=== PATIENT | female | born 1930 | race Caucasian/White ===

== ENCOUNTER → 2016-12-07 | Outpatient (CLI) | payer OTHER ==
--- NOTE | 2016-12-07 18:21 | DX ---
PA and lateral chest History: Cough with right lower lobe rhonchi. Comparison: CT chest March 23, 2016, PA and lateral chest March 23, 2016 and March 21, 2016. Findings: There is mild peribronchial thickening without focal consolidation. There is no pneumothora x or pleural effusion. Prominent right epicardial fat pad is noted. Mild cardiomegaly is stable. Mild degenerative change is present in the spine. Lumbar fusion hardware is incompletely visualized. Athe rosclerotic calcification is noted in the abdominal aorta. Impression: 1. Mild peribronchial thickening suggesting airways disease/bronchitis. 2. Stable mild cardiomegaly.
== END ==
LOC: BMCIMAGING 14:52
PROVIDERS: ATTEND Internal Medicine
DX: R05 Cough (principal); R09.89 Other specified symptoms and signs involving the circulatory and respiratory systems

== ENCOUNTER 2017-01-27 10:46 | Emergency (ER) | payer OTHER ==
[2017-01-27 10:55] VITALS: RESP 18
--- NOTE | 2017-01-27 11:27 | CPEKG ---
Heart Rate: 55 RR Interval: 1091 P-R Interval: 156 QRSD Interval: 90 QT Interval: 432 QTC Interval: 414 P [place]: 70 QRS [place]: 9 T Wave [place]: 58 EKG Severity - NORMAL ECG - EKG Impression: SINUS RHYTHM Electronically Signed By: Domingo Ocasio 29-Jan-2017 14:45:18
[2017-01-27 11:43] LABS: ADD DIFF? YES; ADD MORPH? NO; ADD SCAN? YES; FRAGMENT RBC FLAG 20 (0-99); HEMOGLOBIN 13.8 g/dL (12.6-16.3); LEFT SHIFT FLG 10 (0-99); LIPEMIA HEMOLYSIS FLAG 80 (0-99); MEAN CELL HEMOGLOBIN 28.8 pg (27.9-34.1); MEAN CELL HEMOGLOBIN CONCENTR. 31.4 g/dL (32.4-36.7); MEAN CELL VOLUME 91.9 fL (81.5-99.8); PLATELET CLUMPS FLAG 0 (0-99); PLATELET COUNT 82 10^3/uL (150-400); RED BLOOD CELL COUNT 4.79 10^6/uL (4.18-5.33)
[2017-01-27 11:45] LABS: ATYPICAL LYMPHOCYTE FLAG 140 (0-99)
[2017-01-27 12:07] LABS: ANION GAP 13 mEq/L (8-16); CALCIUM 8.7 mg/dL (8.5-10.4); CARBON DIOXIDE 23 mEq/l (22-31); CHLORIDE 103 mEq/L (97-110); GLOMERULAR FILTRATION RATE 52; GLUCOSE 98 mg/dL (70-100); POTASSIUM 4.1 mEq/L (3.5-5.2); SODIUM 139 mEq/L (134-144)
[2017-01-27 12:20] LABS: GIANT PLATELETS PRESENT; LARGE PLATELETS PRESENT; PLATELET ESTIMATE DECREASED (ADEQ)
[2017-01-27 12:22] LABS: SCAN POSITIVE
--- NOTE | 2017-01-27 12:33 | EDPHY ---
H & P Stated Complaint: Weakness, fever, cough Time Seen by Provider: 01/27/17 11:06 HPI/ROS: CHIEF COMPLAINT: weakness, fever, cough HISTORY OF PRESENT ILLNESS: 86-year-old female presents emergency department complaining of weakness and fever x3 days. Patient was treated for a pneumonia with a course of Zithromax and Levaquin 1.5 months ago and stopped a 2 week prednisone taper on 3 days ago, her symptoms from this completely resolved, Wednesday she developed a dry cough, body aches and fever to 101 and spent 3 days in bed. Patient is independent living, her friend brought her to the emergency department today. Patient uses oxygen at night. She denies chest pain, denies shortness of breath. She denies abdominal pain. Patient reports she had diarrhea the month of November though this has resolved aside from 1 episode of diarrhea yesterday with no blood. Decreased appetite. She reports feeling a pressure in her ears, mild nasal congestion, no sore throat. REVIEW OF SYSTEMS: A comprehensive 10 point review of systems is otherwise negative aside from elements mentioned in the history of present illness. Source: Patient Exam Limitations: No limitations - Personal History Current Tetanus/Diphtheria Vaccine: No Tetanus Vaccine Date: about 10 years ago - Medical/Surgical History Hx Asthma: No Hx Chronic Respiratory Disease: No Hx Diabetes: No Hx Cardiac Disease: No Hx Renal Disease: No Hx Cirrhosis: No Hx Alcoholism: No Hx HIV/AIDS: No Hx Splenectomy or Spleen Trauma: No Other PMH: pmh- HTN, PNA x2, [place] - Social History Smoking Status: Former smoker - Physical Exam Exam: Physical Exam Gen: Alert and Oriented, NAD HEENT: PERRL, moist mucous membranes NECK: no meningismus CV: regular rate and regular rhythm, 3 6 systolic murmur PULM: CTAB, no wheezes ABDOMEN: soft, non tender to palpation, BS present BACK: No CVA tenderness NEURO: Neurologically grossly intact EXTREMITIES: normal appearing SKIN: no rash or break in skin on exposed skin PSYCH: answers questions appropriately. Constitutional: Initial Vital Signs Temperature (C) 36.5 C 01/27/17 10:52 Heart Rate 58 L 01/27/17 10:52 Respiratory Rate 18 01/27/17 10:52 Blood Pressure 120/78 01/27/17 10:52 O2 Sat (%) 91 L 01/27/17 10:52 O2 Delivery Mode Room Air Allergies/Adverse Reactions: No Known Allergies Allergy (Verified 09/23/16 21:13) Home Medications: Medication Instructions Recorded AMLODIPINE BESYLATE 2.5 mg PO HS 01/27/17 Albuterol [Proventil Inhaler HFA 1 - 2 puffs IH Q4H #1 mdi 01/27/17 (*)] Furosemide [Lasix 20 MG (*)] 20 mg PO DAILY 01/27/17 Hydroxyurea [Hydrea 500 mg (*)] 500 mg PO DAILY 01/27/17 Lisinopril 5 mg PO HS 01/27/17 clonAZEPAM [Clonazepam] 1 mg PO HS 01/27/17 Medical Decision Making - Diagnostics EKG Interpretation: EKG shows normal sinus rhythm, rate 55, normal axis, good R-wave progression, no ST or T-wave abnormalities. Imaging: Chest x-ray independently reviewed by me- Impression: 1. Lingular diskoid subsegmental atelectasis. 2. Mild cardiomegaly, without congestive heart failure. Dictated By: Vj Wylie MD ED Course/Re-evaluation: IV established, CBC, chemistry panel, urinalysis, influenza and chest x-ray ordered. Patient is given 500 ml of normal saline. She is afebrile, nontoxic-appearing though room air oxygen saturations dipped down to 84%. Chest x-ray shows no evidence of pneumonia. CBC shows no elevated white blood cell low at 84, chemistry panel is normal, urinalysis shows no evidence of infection, influenza is negative. Recommended hospitalization to the patient for continued workup for oxygen saturations that are 84%, pt is reluctant but agrees to stay. Pt admitted to Dr. Brewer. 4pm- Pt seen by Dr. Brewer in the ED. She now is refusing to be admitted. Dr. Brewer is discharging her home from the ED. - Data Points Laboratory Results: Laboratory Results 01/27/17 11:30 01/27/17 11:30 01/27/17 01/27/17 01/27/17 13:28 13:15 11:30 WBC RBC Hgb Hct MCV MCH MCHC RDW Plt Count MPV Neut % (Auto) Lymph % (Auto) M[place]ick % (Auto) Eos % (Auto) Baso % (Auto) Nucleat RBC Rel Count Absolute Neuts (auto) Absolute Lymphs (auto) Absolute Monos (auto) Absolute Eos (auto) Absolute Basos (auto) Absolute Nucleated RBC Immature Gran % Seg Neutrophils % Band Neutrophils % Lymphocytes % Monocytes % Immature Gran # Absolute Seg Neuts Absolute Band Neuts Absolute Lymphocytes Absolute Monocytes RBC/WBC/PLT Morphology Atypical Lymphocytes Platelet Estimate Large Platelets Giant Platelets Smear Review By Sodium 139 mEq/L mEq/L (134-144) Potassium 4.1 mEq/L mEq/L (3.5-5.2) Chloride 103 mEq/L mEq/L (97-110) Carbon Dioxide 23 mEq/l mEq/l (22-31) Anion Gap 13 mEq/L mEq/L (8-16) BUN 27 mg/dL H mg/dL (7-23) Creatinine 1.0 mg/dL mg/dL (0.6-1.0) Estimated GFR 52 Glucose 98 mg/dL mg/dL (70-100) Calcium 8.7 mg/dL mg/dL (8.5-10.4) Urine Color YELLOW Urine Appearance HAZY Urine pH 5.0 (5.0-7.5) Ur Specific [place] 1.020 (1.002-1.030) Urine Protein NEGATIVE (NEGATIVE) Urine Ketones NEGATIVE (NEGATIVE) Urine Blood NEGATIVE (NEGATIVE) Urine Nitrate NEGATIVE (NEGATIVE) Urine Bilirubin NEGATIVE (NEGATIVE) Urine Urobilinogen NEGATIVE EU EU (0.2-1.0) Ur Leukocyte Esterase NEGATIVE (NEGATIVE) Ur Culture Indicated? NOT INDICATED (NI) Urine Glucose NEGATIVE (NEGATIVE) Influenza Typ A,B (DFA) NEGATIVE FOR FLU (NEGATIVE) 01/27/17 11:30 WBC 4.79 10^3/uL 10^3/uL (3.80-9.50) RBC 4.79 10^6/uL 10^6/uL (4.18-5.33) Hgb 13.8 g/dL g/dL (12.6-16.3) Hct 44.0 % % (38.0-47.0) MCV 91.9 fL fL (81.5-99.8) MCH 28.8 pg pg (27.9-34.1) MCHC 31.4 g/dL L g/dL (32.4-36.7) RDW 18.0 % H % (11.5-15.2) Plt Count 82 10^3/uL L 10^3/uL (150-400) MPV TNP Neut % (Auto) Not Reported Lymph % (Auto) Not Reported [place] % (Auto) Not Reported Eos % (Auto) Not Reported Baso % (Auto) Not Reported Nucleat RBC Rel Count 0.0 % % (0.0-0.2) Absolute Neuts (auto) Not Reported Absolute Lymphs (auto) Not Reported Absolute Monos (auto) Not Reported Absolute Eos (auto) Not Reported Absolute Basos (auto) Not Reported Absolute Nucleated RBC 0.00 10^3/uL 10^3/uL (0-0.01) Immature Gran % Not Reported Seg Neutrophils % 23 % % Band Neutrophils % 10 % % Lymphocytes % 34 % % Monocytes % 33 % % Immature Gran # Not Reported Absolute Seg Neuts 1.10 10^/uL L 10^/uL (1.70-6.50) Absolute Band Neuts 0.48 10^3/uL 10^3/uL (0.00-0.70) Absolute Lymphocytes 1.63 10^3/uL 10^3/uL (1.00-3.00) Absolute Monocytes 1.58 10^3/uL H 10^3/uL (0.30-0.80) RBC/WBC/PLT Morphology NORMAL (NORMAL) Atypical Lymphocytes 1+ H Platelet Estimate DECREASED L (ADEQ) Large Platelets PRESENT H Giant Platelets PRESENT H Smear Review By Pending Sodium Potassium Chloride Carbon Dioxide Anion Gap BUN Creatinine Estimated GFR Glucose Calcium Urine Color Urine Appearance Urine pH Ur Specific [place] Urine Protein Urine Ketones Urine Blood Urine Nitrate Urine Bilirubin Urine Urobilinogen Ur Leukocyte Esterase Ur Culture Indicated? Urine Glucose Influenza Typ A,B (DFA) Medications Given: Discontinued Medications Sodium Chloride (Ns) 500 mls @ 0 mls/hr IV ONCE ONE PRN Reason: Wide Open Stop: 01/27/17 12:44 Last Admin: 01/27/17 13:33 Dose: 500 mls Departure - Departure Disposition: [facility] Acute Clinical Impression: Hypoxia Condition: Fair
[2017-01-27] MEDS ORDERED: NS 500 ML IV ONE (12:43)
[2017-01-27 13:38] LABS: COLOR YELLOW; LEUKOCYTE ESTERASE,URINE NEGATIVE (NEGATIVE); NITRITE,URINE NEGATIVE (NEGATIVE)
[2017-01-27] MEDS ORDERED: ONDANSETRON DISINTEGRATING 4 MG TAB PO PRN (16:02)
[2017-01-27] MEDS ORDERED: ACETAMINOPHEN 325 MG TAB PO PRN (16:02)
[2017-01-27] MEDS ORDERED: ONDANSETRON 4 MG/2 ML VIAL IVP PRN (16:02)
[2017-01-27 16:34] VITALS: BP 142/66; PULSE 52; TEMP 97.5; O2SAT 90
--- NOTE | 2017-01-27 16:59 | GHP ---
DATE OF ADMISSION: 01/27/2017 CHIEF COMPLAINT: Hypoxia. Patient is a pleasant 86-year-old female with history of chronic back pain and chronic hypoxemic res piratory failure (2 L oxygen at night), presenting with weakness and fever for 3 days. The patient was recently treated for pneumonia in November with a course of Zithromax and Levaquin. She just com pleted a 4 week prednisone taper on Wednesday. At that time, her symptoms were completely resolved. H owever, later that day she developed a dry cough, body aches and fever to 100. She said she was in bed for 2 days. She denies nausea, vomiting. Has reported loose stools, orange in color. No blood . She had a normal stool today. She did feel wobbly, although she used a cane today. Denies heada ches. No chest pain. No shortness of breath. Denies dizziness. REVIEW OF SYSTEMS: I completed a 10-point review of system. PAST MEDICAL HISTORY: Insomnia, chronic back pain, history of a bladder tumor. PAST SURGICAL HISTORY: L3-L4 fusion, ROSETTE, bilateral laminectomy, bladder tumor removal, right CEA. SOCIAL HISTORY: Lives in [facility]. Smoked remotely for 10 years. She uses medical [employer] for sleep. No alcohol. Uses a cane occasionally. FAMILY HISTORY: Mother with colon cancer. Father with LA at age 87. Paternal grandfather with an LA. MEDICATIONS: See medication reconciliation. ALLERGIES: No known drug allergies. PHYSICAL EXAM: VITAL SIGNS: Temperature 36.5, blood pressure 120/78, respirations 18, heart rate 5 0s, 84% on room air, 96 on 2 L. GENERAL: Patient is sitting up in chair in no acute distress. MINH NT: PERRLA. EOMI. Dry mucous membranes. No sinus tenderness to palpation. CV: Enrique, regular. No murmurs, gallops, or rubs. LUNGS: Clear. Mildly diminished at bases. No wheezes. ABDOMEN: Soft, nontender, nondistended. : No [place]. No suprapubic tenderness. MUSCULOSKELETAL: 5/5 upp er and lower extremity strength. NEURO: 2 through 12 intact. PSYCH: Alert and oriented x3. UA is negative. Influenza negative. Sodium 139, potassium is 4.1, chloride 103, carbon dioxide 23, creatinine 1, BUN 27. WBC is 4.7, hemoglobin 13, hematocrit 44, platelets 82 (baseline is platelet s 96 to normal). EKG personally reviewed by me. Bradycardic. No ST elevation. Chest x-ray personally reviewed by me. No overt opacity. May be some peribronchial thickening. ASSESSMENT AND PLAN: 1. Acute hypoxia: Suspect this is residual from recent pneumonia. May be having an element of pos tinfectious reactive airway disease. There does not appear to be a new pneumonia on x-ray. Influen za is negative. I will not prescribe antibiotics at this time. We will provide albuterol inhaler a nd she has antitussives at home. Patient has oxygen at home. I advised that she uses this during until she follows up with her PCP. 2. Weakness: Again this could be a residual of recent infection. Patient is afebrile here. Sarah l white count. UA was negative. She did report loose stools and has been on antibiotics recently. She did have a normal stool today. Patient denies falls. No dizziness or lightheadedness. She villagomez s a cane and uses caution. 3. Thrombocytopenia: Platelets were 82. She has had lows in the past and most recently in June. Query if this is due to viral process. She had no active bleeding. DISPOSITION: Plan was to admit patient for observation and PT evaluation. The patient declines adm ission. Feels like she can go home and feels safe. MEDICATIONS: New medication albuterol. FOLLOWUP: Patient should follow up with Dr. Alex for repeat O2 saturation next week. /[id number]/MODL
--- NOTE | 2017-01-27 17:32 | GDS ---
DISCHARGE DIAGNOSES: 1. Hypertension. 2. Acute on chronic hypoxemic respiratory failure. 3. Insomnia. 4. Chronic back pain. 5. History of bladder tumor. 6. Weakness. HISTORY OF PRESENT ILLNESS: The patient is an 86-year-old female with a history of hypertension, re cently treated for pneumonia with both a Z-Alex and Levaquin as well as a 4-week prednisone taper. S he presented today due to increased weakness and fever at home. Upon evaluation in the emergency ro om, the patient is afebrile without a white count. Influenza and chest x-ray are negative for a new infection. Plan was to admit patient for PT evaluation. Patient declined admission. I discharged her home wit h albuterol and advised to use oxygen / until she can follow up with her PCP, Dr. Alex. /[id number]/MODL
[2017-01-27] MEDS ORDERED: amLODIPine BESYLATE 5 MG TAB PO SCH (21:00)
[2017-01-27] MEDS ORDERED: CLONAZEPAM 1 MG PO SCH (21:00)
[2017-01-27] MEDS ORDERED: LISINOPRIL 10 MG TAB PO SCH (21:00)
[2017-01-28] MEDS ORDERED: HYDROXYUREA 500 MG CAP PO SCH (09:00)
[2017-01-28] MEDS ORDERED: FUROSEMIDE 20 MG TAB PO SCH (09:00)
== END 2017-01-27 16:37 | disposition home or self-care (01) ==
LOC: UNDOADMIN 14:41
DX: R09.02 Hypoxemia (principal); R50.9 Fever, unspecified

== ENCOUNTER 2017-02-04 10:39 | Emergency (ER) | payer OTHER ==
[2017-02-04] MEDS ORDERED: NS 1,000 ML IV ONE (11:04)
--- NOTE | 2017-02-04 11:04 | EDPHY ---
H & P Stated Complaint: Sent by PCP. Diarrhea x 1 month. anerexia. Time Seen by Provider: 02/04/17 11:03 HPI/ROS: CHIEF COMPLAINT: Abdominal pain, early satiety HISTORY OF PRESENT ILLNESS: The patient presents to the ED for evaluation of several weeks of progressively worsening lower abdominal pain in early satiety. The patient did have a history of having diarrhea which seem to last approximately 3 weeks which recently resolved. The patient was seen in the ED approximately a week ago for dyspnea and discharged home. The patient saw her primary care provider yesterday who reportedly told the patient to come to the hospital for further evaluation. The patient denies any dysuria. She has no complaints of vomiting. She denies fever. The patient does have a history of chronic lower extremity pain from sciatica. REVIEW OF SYSTEMS: A comprehensive 10 point review of systems is otherwise negative aside from elements mentioned in the history of present illness. Source: Patient Exam Limitations: No limitations - Personal History Current Tetanus/Diphtheria Vaccine: Yes Current Tetanus Diphtheria and Acellular Pertussis (TDAP): Yes Tetanus Vaccine Date: about 10 years ago - Medical/Surgical History Hx Asthma: No Hx Chronic Respiratory Disease: No Hx Diabetes: No Hx Cardiac Disease: No Hx Renal Disease: No Hx Cirrhosis: No Hx Alcoholism: No Hx HIV/AIDS: No Hx Splenectomy or Spleen Trauma: No Other PMH: pmh- HTN, PNA x2, [place] - Social History Smoking Status: Former smoker - Physical Exam Exam: General Appearance: Elderly female, kyphosis, no acute distress Eyes: Pupils equal and round no pallor or injection ENT, Mouth: Mucous membranes moist Respiratory: There are no retractions, lungs are clear to auscultation Cardiovascular: Regular rate and rhythm Gastrointestinal: Tenderness to palpation noted in the left lower quadrant, no peritoneal signs Neurological: A&O, normal motor function, normal sensory exam, normal cranial nerves Skin: Warm and dry, no rashes Musculoskeletal: Neck is supple nontender Extremities: symmetrical, full range of motion Constitutional: Initial Vital Signs Heart Rate 61 02/04/17 10:45 Respiratory Rate 17 02/04/17 10:45 Blood Pressure 124/60 H 02/04/17 10:45 O2 Sat (%) 93 02/04/17 10:45 O2 Delivery Mode Room Air Allergies/Adverse Reactions: No Known Allergies Allergy (Verified 09/23/16 21:13) Home Medications: Medication Instructions Recorded AMLODIPINE BESYLATE 2.5 mg PO HS 01/27/17 Albuterol [Proventil Inhaler HFA 1 - 2 puffs IH Q4H #1 mdi 01/27/17 (*)] Furosemide [Lasix 20 MG (*)] 20 mg PO DAILY 01/27/17 Hydroxyurea [Hydrea 500 mg (*)] 500 mg PO DAILY 01/27/17 Lisinopril 5 mg PO HS 01/27/17 clonAZEPAM [Clonazepam] 1 mg PO HS 01/27/17 Medical Decision Making ED Course/Re-evaluation: The patient is well-appearing. She has minimal abdominal tenderness. The patient is hemodynamically stable. Her laboratory studies are unremarkable. She did receive IV fluids in the ED. At this point time I do not feel that further workup is indicated. She can continue to work with her primary care provider for further evaluation. I do see that she has an outpatient CT scan ordered. I did offer to do that for the patient today however she prefers to go to her physical therapy appointment. Given my low suspicion for an acute intra-abdominal surgical process I feel it is reasonable for her to pursue this imaging study as an outpatient. Differential Diagnosis: Differential diagnosis considered includes diverticulitis, peritonitis, perforation, obstruction, metabolic abnormality, dehydration - Data Points Laboratory Results: Laboratory Results 02/04/17 11:19 02/04/17 11:19 02/04/17 02/04/17 11:19 11:19 WBC 8.42 10^3/uL 10^3/uL (3.80-9.50) RBC 4.66 10^6/uL 10^6/uL (4.18-5.33) Hgb 13.4 g/dL g/dL (12.6-16.3) Hct 42.6 % % (38.0-47.0) MCV 91.4 fL fL (81.5-99.8) MCH 28.8 pg pg (27.9-34.1) MCHC 31.5 g/dL L g/dL (32.4-36.7) RDW 18.6 % H % (11.5-15.2) Plt Count 290 10^3/uL 10^3/uL (150-400) MPV 11.9 fL H fL (8.7-11.7) Neut % (Auto) Not Reported Lymph % (Auto) Not Reported [place] % (Auto) Not Reported Eos % (Auto) Not Reported Baso % (Auto) Not Reported Nucleat RBC Rel Count 0.0 % % (0.0-0.2) Absolute Neuts (auto) Not Reported Absolute Lymphs (auto) Not Reported Absolute Monos (auto) Not Reported Absolute Eos (auto) Not Reported Absolute Basos (auto) Not Reported Absolute Nucleated RBC 0.00 10^3/uL 10^3/uL (0-0.01) Immature Gran % Not Reported Seg Neutrophils % 70 % % Band Neutrophils % 2 % % Lymphocytes % 11 % % Monocytes % 16 % % Eosinophils % 1 % % Immature Gran # Not Reported Absolute Seg Neuts 5.89 10^/uL 10^/uL (1.70-6.50) Absolute Band Neuts 0.17 10^3/uL 10^3/uL (0.00-0.70) Absolute Lymphocytes 0.93 10^3/uL L 10^3/uL (1.00-3.00) Absolute Monocytes 1.35 10^3/uL H 10^3/uL (0.30-0.80) Absolute Eosinophils 0.08 10^3/uL 10^3/uL (0.03-0.40) RBC/WBC/PLT Morphology NORMAL (NORMAL) Platelet Estimate ADEQUATE (ADEQ) Sodium 145 mEq/L H mEq/L (134-144) Potassium 4.1 mEq/L mEq/L (3.5-5.2) Chloride 109 mEq/L mEq/L (97-110) Carbon Dioxide 25 mEq/l mEq/l (22-31) Anion Gap 11 mEq/L mEq/L (8-16) BUN 12 mg/dL mg/dL (7-23) Creatinine 0.9 mg/dL mg/dL (0.6-1.0) Estimated GFR 59 Glucose 127 mg/dL H mg/dL (70-100) Calcium 9.2 mg/dL mg/dL (8.5-10.4) Medications Given: Discontinued Medications Sodium Chloride (Ns) 1,000 mls @ 0 mls/hr IV ONCE ONE PRN Reason: Wide Open Stop: 02/04/17 11:05 Last Admin: 02/04/17 11:36 Dose: 1,000 mls Departure - Departure Disposition: Home, Routine, Self-Care Clinical Impression: Early satiety Condition: Good Instructions: Acute Abdominal Pain (ED) Additional Instructions: 1. Please return to the emergency department for severe pain, fever, vomiting or other concerns. 2. Please schedule a follow-up appointment with Dr. Alex. 3. Dr. Alex has ordered a CT scans to be performed as an outpatient. Please contact the imaging department at [facility] to schedule this study. Referrals: Leslie Alex MD [Primary Care Provider] - As per Instructions
[2017-02-04 11:32] LABS: ADD DIFF? YES; ADD MORPH? NO; ADD SCAN? NO; ATYPICAL LYMPHOCYTE FLAG 90 (0-99); FRAGMENT RBC FLAG 20 (0-99); HEMATOCRIT 42.6 % (38.0-47.0); HEMOGLOBIN 13.4 g/dL (12.6-16.3); LEFT SHIFT FLG 20 (0-99); LIPEMIA HEMOLYSIS FLAG 80 (0-99); MEAN CELL HEMOGLOBIN 28.8 pg (27.9-34.1); MEAN CELL HEMOGLOBIN CONCENTR. 31.5 g/dL (32.4-36.7); MEAN CELL VOLUME 91.4 fL (81.5-99.8); MEAN PLATELET VOLUME 11.9 fL (8.7-11.7); PLATELET CLUMPS FLAG 10 (0-99); PLATELET COUNT 290 10^3/uL (150-400); RED BLOOD CELL COUNT 4.66 10^6/uL (4.18-5.33); RED CELL DISTRIBUTION WIDTH 18.6 % (11.5-15.2)
[2017-02-04 11:45] LABS: ANION GAP 11 mEq/L (8-16); CALCIUM 9.2 mg/dL (8.5-10.4); CARBON DIOXIDE 25 mEq/l (22-31); CHLORIDE 109 mEq/L (97-110); CREATININE 0.9 mg/dL (0.6-1.0); GLOMERULAR FILTRATION RATE 59; GLUCOSE 127 mg/dL (70-100); POTASSIUM 4.1 mEq/L (3.5-5.2); SODIUM 145 mEq/L (134-144)
[2017-02-04 12:15] LABS: PLATELET ESTIMATE ADEQUATE (ADEQ)
[2017-02-04 13:02] VITALS: BP 155/66; PULSE 78; RESP 18; TEMP 97.7; O2SAT 90
== END 2017-02-04 13:04 | disposition home or self-care (01) ==
DX: R68.81 Early satiety (principal); I10 Essential (primary) hypertension; Z87.891 Personal history of nicotine dependence

== ENCOUNTER → 2017-02-17 | Outpatient (CLI) | payer OTHER | LOC: FIMAGING 14:34 | PROVIDERS: ATTEND Physician Assistant | DX: M48.06 Spinal stenosis, lumbar region (principal); M99.73 Connective tissue and disc stenosis of intervertebral foramina of lumbar region; M51.36 Other intervertebral disc degeneration, lumbar region; M43.16 Spondylolisthesis, lumbar region; M12.88 Other specific arthropathies, not elsewhere classified, other specified site; M51.26 Other intervertebral disc displacement, lumbar region; Z98.1 Arthrodesis status ==

== ENCOUNTER → 2018-04-04 | Outpatient (CLI) | payer OTHER | LOC: BMCIMAGING 12:48 | PROVIDERS: ATTEND Internal Medicine | DX: R05 Cough (principal); R53.83 Other fatigue ==

== ENCOUNTER 2018-06-07 12:35 | Emergency (ER) | payer OTHER ==
--- NOTE | 2018-06-07 12:56 | EDPHY ---
H & P Time Seen by Provider: 06/07/18 12:55 HPI/ROS: Chief complaint. Dizziness HPI. 87-year-old female presents with dizziness and nausea that began today. She has been tired the last several days as she had family visiting through the weekend and she was very busy. She has not slept well the last several nights. Today she had dizziness similar to previous vertigo and some nausea. However no vomiting and no abdominal pain. She did have 1 episode of loose stool this morning. She has no headache or change in her vision. No chest discomfort or shortness of breath. Not sick and no fever. She does have a history of vertigo. ROS Constitutional. no fever/chills, no weakness Eyes. no problems with vision ENT. no sore throat, no nasal drainage Cardiovascular. no chest pain Respiratory. no shortness of breath, no cough Abdominal. No abdominal pain however nausea and 1 episode of loose stool this morning . no problems urinating MS. no calf pain/swelling, no neck/back pain, no joint pain Skin. no rash Lymph. no swollen glands Neuro. Dizziness Past Medical/Surgical History: Past medical history is significant for hypertension, pneumonia, back surgeries , polycythemia vera Social History: Single, nonsmoker, no alcohol Smoking Status: Former smoker Physical Exam: General Appearance: Alert pleasant well-developed female mild distress vital signs are stable Eyes: Pupils equal and round no pallor or injection. ENT, Mouth: Mucous membranes are moist. Respiratory: There are no retractions, lungs are clear to auscultation. Cardiovascular: Regular rate and rhythm. Gastrointestinal: Abdomen is soft and nontender, no masses, bowel sounds normal. Neurological: Awake and alert, sensory and motor exams grossly normal. Speech is normal. Cranial nerves are normal. No pronator drift. [id number] and [id number] are intact bilaterally Skin: Warm and dry, no rashes. Musculoskeletal: Neck is supple nontender. Extremities symmetrical, full range of motion. Psychiatric: Patient is oriented X 3, there is no agitation. Constitutional: Initial Vital Signs Temperature (C) 36.5 C 06/07/18 12:41 Heart Rate 60 06/07/18 12:41 Respiratory Rate 17 06/07/18 12:41 Blood Pressure 182/82 H 06/07/18 12:41 O2 Sat (%) 96 06/07/18 12:41 O2 Delivery Mode Room Air Allergies/Adverse Reactions: No Known Allergies Allergy (Verified 09/23/16 21:13) Home Medications: Medication Instructions Recorded AMLODIPINE BESYLATE 2.5 mg PO HS 01/27/17 Albuterol [Proventil Inhaler HFA 1 - 2 puffs IH Q4H #1 mdi 01/27/17 (*)] Furosemide [Lasix 20 MG (*)] 20 mg PO DAILY 01/27/17 Hydroxyurea [Hydrea 500 mg (*)] 500 mg PO DAILY 01/27/17 Lisinopril 5 mg PO HS 01/27/17 clonazePAM [Clonazepam] 1 mg PO HS 01/27/17 Gabapentin 06/07/18 Meclizine HCl [Meclizine HCl 12.5 12.5 mg PO BID PRN #10 tab 06/07/18 mg (*)] Thc 06/07/18 Medical Decision Making - Diagnostics EKG Interpretation: EKG interpreted by me shows normal sinus rhythm normal interval and axis. QRS is normal there is no significant ST elevation or depression. There is no arrhythmia. The rate is 51 Procedures: IV normal saline. Meclizine orally ED Course/Re-evaluation: Re-evaluation at 2:00 p.m. Patient feeling well. She and I discussed laboratory evaluation and low platelet count. I consulted discussed case with Dr. Debbie Siddiqi stone planer for Dr. Pardo patient's oncologist. [place] [id number] [place]. She will follow up with Dr. Pardo and have repeat CBC this week. Re-evaluation 3:10 p.m. Patient is stable. She is feeling much better. She feels well to go home. Patient and I discussed laboratory evaluation and EKG findings. We discussed treatment plan including criteria for return importance of follow-up and further evaluation. She expresses understanding and agreement. Differential Diagnosis: Likely this is more exhaustion from increased activity and having a hard time sleeping as a result. I do not find any evidence of illness. I considered pneumonia however lung exam is normal. I considered urinary tract infection. Patient has polycythemia vera and has a low platelet count. She will be followed up by her oncologist for this. - Data Points Laboratory Results: Laboratory Results 06/07/18 13:00 06/07/18 13:00 06/07/18 06/07/18 06/07/18 14:45 13:36 13:00 WBC RBC Hgb Hct MCV MCH MCHC RDW Plt Count MPV Neut % (Auto) Lymph % (Auto) Sherman % (Auto) Eos % (Auto) Baso % (Auto) Nucleat RBC Rel Count Absolute Neuts (auto) Absolute Lymphs (auto) Absolute Monos (auto) Absolute Eos (auto) Absolute Basos (auto) Absolute Nucleated RBC Immature Gran % Immature Gran # Sodium 140 mEq/L mEq/L (135-145) Potassium 4.2 mEq/L mEq/L (3.3-5.0) Chloride 109 mEq/L mEq/L (97-110) Carbon Dioxide 26 mEq/l mEq/l (22-31) Anion Gap 5 mEq/L L mEq/L (8-16) BUN 25 mg/dL H mg/dL (7-23) Creatinine 0.7 mg/dL mg/dL (0.6-1.0) Estimated GFR > 60 Glucose 152 mg/dL H mg/dL (70-100) Calcium 9.3 mg/dL mg/dL (8.5-10.4) POC Troponin I 0.01 ng/mL ng/mL (0.00-0.08) Urine Color YELLOW Urine Appearance CLEAR Urine pH 6.0 (5.0-7.5) Ur Specific [place] 1.019 (1.002-1.030) Urine Protein NEGATIVE (NEGATIVE) Urine Ketones NEGATIVE (NEGATIVE) Urine Blood NEGATIVE (NEGATIVE) Urine Nitrate NEGATIVE (NEGATIVE) Urine Bilirubin NEGATIVE (NEGATIVE) Urine Urobilinogen NEGATIVE EU EU (0.2-1.0) Ur Leukocyte Esterase NEGATIVE (NEGATIVE) Urine RBC 1-3 /hpf /hpf (0-3) Urine WBC 1-3 /hpf /hpf (0-3) Ur Epithelial Cells TRACE /lpf /lpf (NONE-1+) Urine Mucus TRACE /lpf /lpf (NONE-1+) Urine Glucose NEGATIVE (NEGATIVE) 06/07/18 13:00 WBC 11.06 10^3/uL H 10^3/uL (3.80-9.50) RBC 4.77 10^6/uL 10^6/uL (4.18-5.33) Hgb 14.8 g/dL g/dL (12.6-16.3) Hct 46.1 % % (38.0-47.0) MCV 96.6 fL fL (81.5-99.8) MCH 31.0 pg pg (27.9-34.1) MCHC 32.1 g/dL L g/dL (32.4-36.7) RDW 17.2 % H % (11.5-15.2) Plt Count 60 10^3/uL L 10^3/uL (150-400) MPV TNP Neut % (Auto) 72.9 % % (39.3-74.2) Lymph % (Auto) 14.2 % L % (15.0-45.0) Sherman % (Auto) 9.1 % % (4.5-13.0) Eos % (Auto) 1.9 % % (0.6-7.6) Baso % (Auto) 0.7 % % (0.3-1.7) Nucleat RBC Rel Count 0.0 % % (0.0-0.2) Absolute Neuts (auto) 8.06 10^3/uL H 10^3/uL (1.70-6.50) Absolute Lymphs (auto) 1.57 10^3/uL 10^3/uL (1.00-3.00) Absolute Monos (auto) 1.01 10^3/uL H 10^3/uL (0.30-0.80) Absolute Eos (auto) 0.21 10^3/uL 10^3/uL (0.03-0.40) Absolute Basos (auto) 0.08 10^3/uL 10^3/uL (0.02-0.10) Absolute Nucleated RBC 0.00 10^3/uL 10^3/uL (0-0.01) Immature Gran % 1.2 % H % (0.0-1.1) Immature Gran # 0.13 10^3/uL H 10^3/uL (0.00-0.10) Sodium Potassium Chloride Carbon Dioxide Anion Gap BUN Creatinine Estimated GFR Glucose Calcium POC Troponin I Urine Color Urine Appearance Urine pH Ur Specific [place] Urine Protein Urine Ketones Urine Blood Urine Nitrate Urine Bilirubin Urine Urobilinogen Ur Leukocyte Esterase Urine RBC Urine WBC Ur Epithelial Cells Urine Mucus Urine Glucose Medications Given: Discontinued Medications Sodium Chloride (Ns) 500 mls @ 0 mls/hr IV EDNOW ONE; Wide Open PRN Reason: Protocol Stop: 06/07/18 13:12 Last Admin: 06/07/18 13:26 Dose: 500 mls Meclizine HCl (Meclizine Hcl) 12.5 mg PO EDNOW ONE Stop: 06/07/18 13:13 Last Admin: 06/07/18 13:27 Dose: 12.5 mg Point of Care Test Results: Chemistry 06/07/18 13:36 POC Troponin I 0.01 ng/mL ng/mL (0.00-0.08) Departure - Departure Disposition: Home, Routine, Self-Care Clinical Impression: Vertigo, Thrombocytopenia Condition: Good Instructions: Vertigo (ED) Additional Instructions: Drink plenty of fluids and stay hydrated. Regular meals. Continue regular medications. Meclizine if needed for dizziness. Dr. Pardo will contact you this week for a repeat blood test for further evaluation of your low platelets. Return for worsening dizziness, chest discomfort, trouble breathing. Recheck in 2 days if not improving Referrals: Leslie Alex MD [Primary Care Provider] - 2-3 days, if not improved Jac Pardo MD [Medical Doctor] - 5-7 days, call for appt. Prescriptions: Meclizine HCl [Meclizine HCl 12.5 mg (*)] 12.5 mg PO BID PRN #10 tab PRN Reason: Dizziness
[2018-06-07] MEDS ORDERED: NS 500 ML IV ONE (13:11)
[2018-06-07] MEDS ORDERED: MECLIZINE HCL 25 MG TAB PO ONE (13:12)
[2018-06-07] MEDS ORDERED: MECLIZINE HCL 25 MG TAB ONE (13:24)
--- NOTE | 2018-06-07 13:34 | CPEKG ---
Heart Rate: 51 RR Interval: 1176 P-R Interval: 152 QRSD Interval: 94 QT Interval: 456 QTC Interval: 420 P Austin: 71 QRS Austin: 20 T Wave Austin: 52 EKG Severity - OTHERWISE NORMAL ECG - EKG Impression: SINUS RHYTHM EKG Impression: ATRIAL PREMATURE COMPLEX Electronically Signed By: Arik Baumann 07-Jun-2018 13:45:35
[2018-06-07 13:36] LABS: PLATELET COUNT 60 10^3/uL (150-400)
[2018-06-07 15:40] VITALS: BP 224/80
== END 2018-06-07 15:50 | disposition home or self-care (01) ==
DX: R42 Dizziness and giddiness (principal); D69.6 Thrombocytopenia, unspecified; E86.9 Volume depletion, unspecified; I10 Essential (primary) hypertension; Z87.891 Personal history of nicotine dependence
CPT/HCPCS: 84484-PO

== ENCOUNTER 2018-11-13 08:10 | Emergency (ER) | payer OTHER ==
--- NOTE | 2018-11-13 08:33 | EDPHY ---
H & P Stated Complaint: Right shoulder pain, headache and neck pain following fall Time Seen by Provider: 11/13/18 08:32 HPI/ROS: CHIEF COMPLAINT: Right shoulder pain, headache and neck pain following mechanical fall. HISTORY OF PRESENT ILLNESS: The patient presents to the ED for evaluation of right shoulder pain, headache and neck pain after she slipped and fell while walking down her stairs last night. The patient fell on her last 2 stairs. She fell forward striking her forehead. She developed a hematoma to her forehead. She complains of a mild frontal headache. The patient has complaints of posterior cervical spine pain. The patient also has fairly significant right shoulder pain which is worsened with palpation and movement. The patient does have a prior history of lumbar fusion denies any acute complaints of back pain, numbness or weakness. The patient is not anticoagulated. The patient denies any abdominal pain, chest pain or shortness of breath. REVIEW OF SYSTEMS: A comprehensive 10 point review of systems is otherwise negative aside from elements mentioned in the history of present illness. Source: Patient - Personal History Tetanus Vaccine Date: about 10 years ago - Medical/Surgical History Hx Asthma: No Hx Chronic Respiratory Disease: No Hx Diabetes: No Hx Cardiac Disease: No Hx Renal Disease: No Hx Cirrhosis: No Hx Alcoholism: No Hx HIV/AIDS: No Hx Splenectomy or Spleen Trauma: No Other PMH: pmh- HTN, PNA, 2010 lumbar fusion - Social History Smoking Status: Former smoker - Physical Exam Exam: General Appearance: Alert, no distress Head: Atraumatic Eyes: Pupils equal, round, reactive ENT, Mouth: No hemotympanum, no oral trauma Neck: Nontender, trachea midline Respiratory: No chest wall tender, no subcutaneous air, lungs clear bilaterally Cardiovascular: Regular rate and rhythm Abdomen: Abdomen is soft and nontender, pelvis stable Skin: No lacerations, No abrasion Back: No midline T/L/S pain Extremities: Nontender, full range of motion Neurological: A&Ox3, normal motor function, normal sensory exam Constitutional: Initial Vital Signs Temperature (C) 36.7 C 11/13/18 08:15 Heart Rate 65 11/13/18 08:15 Respiratory Rate 16 11/13/18 08:15 Blood Pressure 144/78 H 11/13/18 08:15 O2 Sat (%) 94 11/13/18 08:15 O2 Delivery Mode Room Air Allergies/Adverse Reactions: No Known Allergies Allergy (Verified 09/23/16 21:13) Home Medications: Medication Instructions Recorded AMLODIPINE BESYLATE 2.5 mg PO HS 01/27/17 Albuterol [Proventil Inhaler HFA 1 - 2 puffs IH Q4H #1 mdi 01/27/17 (*)] Furosemide [Lasix 20 MG (*)] 20 mg PO DAILY 01/27/17 Hydroxyurea [Hydrea 500 mg (*)] 500 mg PO DAILY 01/27/17 Lisinopril 5 mg PO HS 01/27/17 clonazePAM [Clonazepam] 1 mg PO HS 01/27/17 Gabapentin 06/07/18 Medical Decision Making - Diagnostics Imaging Results: Imaging Impressions Shoulder X-Ray 11/13/18 08:19 Impression: 1. No acute osseous findings. 2. Degenerative change as above. Cervical Spine CT 11/13/18 08:48 Impression: 1. No acute posttraumatic abnormality identified. If there is persistent pain or neurologic deficit, consider MRI and/or flexion and extension views if clinically indicated. 2. Slight increase in multilevel degenerative change and stable mild spondylolistheses. 3. Additional findings as above. Findings discussed with Mac Lockett 11/13/2018 at 9:33. ED Course/Re-evaluation: The patient presents to the ED for evaluation of traumatic injury sustained is result of a mechanical fall. The patient is neurologically intact but is noted to have fairly significant forehead hematoma. Given her age, a CT scan of the head has been ordered. Additionally the patient does have some cervical spine tenderness warranting further radiographic evaluation. Right shoulder x-ray was also ordered. Fortunately imaging studies of the head, neck and right shoulder demonstrate no evidence of an obvious fracture. I re-evaluated the patient again at 10:00 a.m. And reviewed the results of her imaging studies. Plan will be for discharge home and treat soft tissue injuries accordingly. The patient is given customary discharge instructions and return precautions. The patient has been referred to the orthopedic surgeon at the [facility] for any persistent right shoulder pain. Differential Diagnosis: Differential diagnosis considered includes intracranial hemorrhage, cervical spine fracture, shoulder fracture, skull fracture, concussion Departure - Departure Disposition: Home, Routine, Self-Care Clinical Impression: Right shoulder strain, Traumatic hematoma of forehead, Cervical strain, acute Condition: Good Instructions: Cervical Strain (ED) Additional Instructions: 1. Take Ibuprofen or Motrin 600 mg by mouth three times a day. 2. Your x-rays demonstrate no evidence of an obvious fracture. 3. Return to the ED for severe pain or other concerns 4. Follow up with Dr. Phan from Orthopedic surgery for any persistent pain Referrals: Leslie Alex MD [Primary Care Provider] - As per Instructions Frankie Phan MD [Medical Doctor] - As per Instructions
[2018-11-13 10:13] VITALS: BP 139/96
== END 2018-11-13 10:13 | disposition home or self-care (01) ==
DX: S00.83XA Contusion of other part of head, initial encounter (principal); S16.1XXA Strain of muscle, fascia and tendon at neck level, initial encounter; S49.91XA Unspecified injury of right shoulder and upper arm, initial encounter; I10 Essential (primary) hypertension; W10.9XXA Fall (on) (from) unspecified stairs and steps, initial encounter; Y92.89 Other specified places as the place of occurrence of the external cause; Y93.9 Activity, unspecified; Y99.9 Unspecified external cause status; Z87.891 Personal history of nicotine dependence

== ENCOUNTER 2018-12-22 21:05 | Inpatient (IN) | payer OTHER ==
[~2018-12-22 21:05] MED LIST: LISINOPRIL 5 MG TAB PO SCH
[2018-12-22] MEDS ORDERED: AZITHROMYCIN IV 500 MG in NS 250 ML IV ONE (22:22)
--- NOTE | 2018-12-22 22:25 | EDPHY ---
H & P Stated Complaint: cough sx Time Seen by Provider: 12/22/18 21:27 HPI/ROS: CHIEF COMPLAINT: Cough, generalized weakness HISTORY OF PRESENT ILLNESS: 88-year-old female with polycythemia vera presents with cough and generalized weakness. Onset of a dry cough 3 days ago. The cough is frequent and moderate. Associated with excessive fatigue and generalized weakness. She slept most of the day today. No sore throat or congestion. No known fever. Received a flu vaccination this year. REVIEW OF SYSTEMS: complete 10 point ROS reviewed and is negative except for the noted elements in the HPI - Personal History Current Tetanus/Diphtheria Vaccine: Unsure Current Tetanus Diphtheria and Acellular Pertussis (TDAP): Unsure Tetanus Vaccine Date: about 10 years ago - Medical/Surgical History Hx Asthma: No Hx Chronic Respiratory Disease: No Hx Diabetes: No Hx Cardiac Disease: No Hx Renal Disease: No Hx Cirrhosis: No Hx Alcoholism: No Hx HIV/AIDS: No Hx Splenectomy or Spleen Trauma: No Other PMH: pmh- HTN, PNA, 2010 lumbar fusion. bilsty hip. bladder tumor removed - Social History Smoking Status: Former smoker Additional Social History: Lives alone in own home - Physical Exam Exam: General Appearance: Alert, pleasant Eyes: Pupils equal and round, no conjunctival pallor ENT, Mouth: Mucous membranes moist Neck: Normal inspection Respiratory: Rales at the right base Cardiovascular: Regular rate and rhythm Gastrointestinal: Abdomen is soft and nontender Neurological: A&O, nonfocal exam Skin: Warm and dry, no rash Extremities: Nontender, no pedal edema Psychiatric: Mood and affect normal Constitutional: Initial Vital Signs Temperature (C) 37.1 C 12/22/18 21:13 Heart Rate 86 12/22/18 21:13 Respiratory Rate 18 12/22/18 21:13 Blood Pressure 178/100 H 12/22/18 21:13 O2 Sat (%) 94 12/22/18 21:13 O2 Delivery Mode Nasal Cannula O2 (L/minute) 3 Allergies/Adverse Reactions: No Known Allergies Allergy (Verified 09/23/16 21:13) Home Medications: Medication Instructions Recorded Furosemide [Lasix 20 MG (*)] 20 mg PO [facility] 01/27/17 Hydroxyurea [Hydrea 500 mg (*)] 500 mg PO [facility] 01/27/17 clonazePAM [Clonazepam] 1 mg PO 01/27/17 Gabapentin [Neurontin 100 MG (*)] 100 mg PO BID 06/07/18 amLODIPine BESYLATE [Norvasc 2.5 2.5 mg PO DAILY 12/23/18 mg (*)] amLODIPine BESYLATE [Norvasc 5 mg 5 mg PO HS 12/23/18 (*)] Medical Decision Making - Diagnostics Imaging Results: Chest X-Ray 12/22/18 21:32 Impression: Right lower lobe pneumonia. Imaging: I viewed and interpreted images myself ED Course/Re-evaluation: This elderly patient presents with cough, hypoxia and generalized weakness. She does not meet SIRS criteria. Oxygen 2 L by nasal cannula applied. Chest x- ray reveals right lower lobe pneumonia. Blood cultures were drawn and Rocephin and Zithromax IV given. Will admit d/t hypoxia and weakness. The hospitalist service was consulted for admission. Differential Diagnosis: Differential diagnosis includes though it is not limited to pneumonia, pneumothorax, pulmonary embolism, aortic dissection, pericarditis, acute coronary syndrome. - Data Points Laboratory Results: Laboratory Results 12/23/18 03:45 12/23/18 03:45 Medications Given: Amlodipine Besylate (Norvasc) 5 mg PO [facility] Stop: 06/21/19 01:44 Last Admin: 12/23/18 20:46 Dose: 5 mg Clonazepam (Klonopin) 1 mg PO [facility] Stop: 06/21/19 15:14 Last Admin: 12/23/18 16:41 Dose: 1 mg Furosemide (Lasix) [address] [facility] Stop: 06/21/19 15:29 Last Admin: 12/23/18 16:44 Dose: 20 mg Gabapentin (Neurontin) 100 mg PO BID [facility] Stop: 06/21/19 20:59 Last Admin: 12/23/18 20:46 Dose: 100 mg Guaifenesin (Mucinex) 600 mg PO BID PRN PRN Reason: Cough, Moderate Stop: 06/21/19 08:59 Last Admin: 12/23/18 01:30 Dose: 600 mg Hydroxyurea (Hydrea) 500 mg PO F [facility] Stop: 06/21/19 14:59 Last Admin: 12/23/18 16:40 Dose: 500 mg Discontinued Medications Amlodipine Besylate (Norvasc) 2.5 mg PO [facility] Stop: 06/21/19 01:44 Last Admin: 12/23/18 01:38 Dose: 2.5 mg Azithromycin 500 mg/ Sodium (Chloride) 255 mls @ 255 mls/hr IV EDNOW ONE PRN Reason: Protocol Stop: 12/22/18 23:21 Last Admin: 12/22/18 23:35 Dose: 255 mls Ceftriaxone Sodium/Dextrose (Rocephin 1 Gm (Premix)) 50 mls @ 100 mls/hr IV EDNOW ONE PRN Reason: Protocol Stop: 12/22/18 22:51 Last Admin: 12/22/18 22:52 Dose: 50 mls Sodium Chloride (Ns) 500 mls @ 1,000 mls/hr IV EDNOW ONE PRN Reason: Protocol Stop: 12/22/18 23:32 Last Admin: 12/22/18 23:30 Dose: 500 mls Sodium Chloride (Ns) 1,000 mls @ 75 mls/hr IV CONT [facility] Stop: 06/20/19 23:14 Last Admin: 12/23/18 14:57 Dose: 1,000 mls Lisinopril (Zestril) 5 mg PO HS [facility] Stop: 06/20/19 20:59 Last Admin: 12/23/18 01:30 Dose: 5 mg Departure - Departure Disposition: [facility] Inpatient Acute Clinical Impression: Pneumonia Qualifiers: Pneumonia type: due to unspecified organism Laterality: right Lung location: lower lobe of lung Qualified Code(s): J18.1 - Lobar pneumonia, unspecified organism Condition: Fair
[2018-12-22] MEDS ORDERED: NS 500 ML IV ONE (23:03)
[2018-12-22 23:04] LABS: PLATELET COUNT 85 10^3/uL (150-400)
[2018-12-22] MEDS ORDERED: ACETAMINOPHEN 325 MG TAB PO PRN (23:10)
[2018-12-22] MEDS ORDERED: ONDANSETRON DISINTEGRATING 4 MG TAB PO PRN (23:10)
[2018-12-22] MEDS ORDERED: ONDANSETRON 4 MG/2 ML VIAL IVP PRN (23:10)
[2018-12-22] MEDS ORDERED: guaiFENesin 600 MG TAB.ER PO PRN (23:12)
[2018-12-22] MEDS: NS 1,000 ML IV SCH (23:53)
--- NOTE | 2018-12-23 02:50 | GHP ---
SOURCE: Patient provides history, appears reliable. EMR was reviewed, and case discussed with ED carson camacho. CHIEF COMPLAINT: Cough and generalized weakness. HISTORY OF PRESENT ILLNESS: A very pleasant 88-year-old female with past medical history significant for HTN, thrombocytopenia, polycythemia vera, pseudogout, history of pneumonia, presents to the [facility] department today with complaints of a progressive cough for the past 3 days. Patient reports t his as dry cough initially, has now loosened, but she still does not have significant production. Sh e denies any dyspnea, fevers, or chills. She has no known sick contacts. Patient with increasing ge neralized weakness and fatigue. She slept most of the day. She does live alone in her home. She re ports she received the flu vaccine for this season. REVIEW OF SYSTEMS: Remainder of 10 systems reviewed and negative, except as noted above. : Samuel lin does report she has been having increasing frequency without any dysuria or flank pain. She does admit that she has been drinking a significant amount of water, but she is concerned that she could b e developing a UTI. ALLERGIES: No known drug allergies. HOME MEDICATIONS: As per EMR. Clonazepam 1 mg p.o. at h.s. Lisinopril 5 mg p.o. at h.s. Hydroxyur ea 500 mg p.o. daily. Gabapentin, dose unknown. Lasix 20 mg p.o. daily. Albuterol 1 to 2 puffs inh aled q.4 hours p.r.n. Amlodipine 2.5 mg p.o. at h.s. PAST MEDICAL HISTORY: Significant for pseudogout, HTN, thrombocytopenia, polycythemia vera, vertigo, shingles, pneumonia. PAST SURGICAL HISTORY: Significant for lumbar fusion L3-4, bilateral total hip arthroplasty, bladder tumors resection via cystoscopy. FAMILY HISTORY: Negative for lung disease. SOCIAL HISTORY: Patient lives alone in her home. Her sons live out of state. She quit smoking many years ago. She does not currently use any tobacco, alcohol, or drugs. CODE STATUS: DNR, DNI. PHYSICAL EXAMINATION: VITAL SIGNS UPON ARRIVAL TO THE EMERGENCY DEPARTMENT: Blood pressure 178/100, heart rate 86, respiratory rate 18, O2 sat 94% on 3 L by nasal cannula. Patient's initial O2 sat pe r ED provider was 88% on room air. VITAL SIGNS CURRENTLY AVAILABLE: Blood pressure is 163/82, heart rate is 82, respiratory rate 13, O2 sat is 92% on 3 L by nasal cannula, temperature of 37.4. GENERA L: No acute distress. Very pleasant, frail, elderly female is lying quietly in bed. She coughs int ermittently. HEAD: Normocephalic, atraumatic. EYES: Extraocular muscles are intact. Pupils equal , round, reactive to light bilaterally and symmetric. Lens reflex is appreciated bilaterally. No sc leral icterus or conjunctival injection. ENT: Mucous membranes appear moist. No nasal discharge. Dentition in fair condition. No oropharyngeal erythema or exudates. NECK: Supple. Trachea midline . CV: Regular rate and rhythm. Patient with a 3/6 systolic murmur. No rubs or gallops appreciated . RESPIRATORY: Patient without any acute respiratory distress. Lungs are clear to auscultation nancy aterally with exception of occasional crackles in the right lower base. Patient does have a nonprodu ctive cough that does sound slightly congested. ABDOMEN: Positive bowel sounds. Soft, nontender to palpation. No rebound, guarding, or masses appreciated. : No suprapubic tenderness to palpation . No Montalvo catheter in place. EXTREMITIES: No cyanosis, clubbing, or edema. Patient with 1+ pedal pulses bilaterally and symmetric. NEURO: Grossly nonfocal. No facial drooping. Patient is awake, alert, and oriented x3. PSYCH: Thought process, content, and questions are all appropriate. Patie nt is very pleasant and cooperative. LABORATORY STUDIES: 1. WBC is 36.43, H and H are 13.5 and 45.1, MCV of 83.7, platelet count is 85,000, no bands. Venous lactate is 0.8. Sodium is 135, potassium 3.9, chloride 103, CO2 is 24, anion gap of 8, BUN is 15, c reatinine 0.9, GFR 59, glucose 146, calcium 7.2. 2. Chest x-ray image report reviewed by me significant for right lower lobe pneumonia, left lung citlaly ar, mild cardiomegaly unchanged. ASSESSMENT AND PLAN: A very pleasant 88-year-old female with history of hypertension, polycythemia v era, who presents to the emergency department with complaints of 3 days of nonproductive cough, gener alized weakness, fatigue. 1. Right lower lobe pneumonia. The patient has been started on azithromycin and Rocephin. Will lv n to continue at this time. Patient with a leukocytosis, 36,000. She does not have any additional c riteria for systemic inflammatory response syndrome. Her lactate is within normal limits. Continue antibiotic therapy and supplemental intravenous fluid. 2. Hypoxia secondary to her pneumonia. Patient requiring some supplemental oxygen. Will titrate do wn as tolerated. Maintain oxygen sats greater than 90. Room air challenge and exertional pulse oxim etry tomorrow. 3. Chronic medical issues: a. Benign essential hypertension. Blood pressures at this time are elevated. She has not taken her evening medications. Will resume her lisinopril and amlodipine. Reassess and may need an as needed . She is asymptomatic with any chest pain, headache. b. Polycythemia vera. Patient has followup scheduled with Dr. Pardo. c. Thrombocytopenia, chronic. Holding anticoagulation. At this time, no evidence of active bleedin g. 4. Fluid, electrolyte, nutrition: Intravenous fluids for gentle hydration overnight. Diet as yulissa ated. Electrolytes adequate. Do not require replacement. 5. Prophylaxis: Sequential compression devices. Holding anticoagulation in setting of thrombocytop enia. 6. Cor status is do not resuscitate/do not intubate. Patient reports that she has medical power of employee benefits attorney who is RN at the [facility]. 7. Disposition: Patient admitted to observation status pending reassessment in the morning and pote ntial need for continued oxygen. /[id number]/MODL
[2018-12-23 05:00] LABS: PLATELET COUNT 67 10^3/uL (150-400)
[2018-12-23] MEDS ORDERED: ENOXAPARIN 40 MG/0.4 ML SYR SC SCH (09:00)
--- NOTE | 2018-12-23 11:44 | ASMTCASEMG ---
Living Arrangements What is your living Answers: Alone arrangement? Who do you live with? Type Of Residence What kind of residence do Answers: House you live in? Discharge Plan Comments Coordination Status Comments Notes: Patient is an 88yo female with a hx of hypertension, polycythemia vera who has been admitted for right lower lobe pneumonia, hypoxia, benign essential hypertension, polycythemia, thrombocytopenia, fluid, electrolyte, nutrition. Patient is currently OBS status. Patient states she is DNR/DNI and her MDPOA is Kira Duke ([phone]), a RN at the [facility]. No therapies ordered at this time. D/C plan TBD. CM will follow. Date Signed: 12/23/2018 11:43 AM Electronically Signed By:Vernell Llamas LCSW
[2018-12-23] MEDS: NS 1,000 ML IV SCH (14:57)
[2018-12-23] MEDS ORDERED: HYDROXYUREA 500 MG CAP PO SCH (15:00)
--- NOTE | 2018-12-23 15:04 | HOSPPROG ---
Hospitalist Progress Note Assessment/Plan: #RLL Community Acquired Pneumonia #Acute Hypoxic respiratory failure, baseline is 2 Liters chronically #Hx of Bronchitis, no acute exacerbation at this time. no e/o wheezing #Generalized Weakness due to infection -PT/OT evals #Hx of Diuretic use, denies CHF #HTN -reports not on Lisinopril at home, will d/c -on Amlodipine BID at home. Will change to nightly dosing only. may need further adjustments tomorrow. Given her age, would allow some permissive HTN. Would also limit BP agents to one if possible #Polycythemia -can f/u with Heme in op setting #thrombocytopenia Dispo: change to inpatient, continue Rocephin and Azithromycin. F/u Blood cultures, resp cultures. restart home meds Subjective: no cp. Still with some SOB. afebrile. Objective: Vital Signs Temp Pulse Resp BP Pulse Ox 37.4 C 65 18 151/72 H 94 12/23/18 00:32 12/23/18 10:28 12/23/18 10:28 12/23/18 10:28 12/23/18 10:28 Laboratory Results 12/23/18 03:45 12/23/18 03:45 12/22/18 12/23/18 12/24/18 05:59 05:59 05:59 Intake Total 1335 575 Output Total 400 Balance 1335 175 - Physical Exam Constitutional: no apparent distress Eyes: PERRL Ears, Nose, Mouth, Throat: moist mucous membranes, hearing normal Cardiovascular: regular rate and rhythym Respiratory: reduced air movement Gastrointestinal: normoactive bowel sounds, soft, non-tender abdomen Skin: warm Musculoskeletal: generalized weakness Neurologic: AAOx3, weakness Psychiatric: interacting appropriately, not encephalopathic Lymph, Heme, Immunologic: No petechiae ICD10 Worksheet Patient Problems: Problems Problem Status Onset Pneumonia Acute Anxiety disorder Active Pseudogout Active right lumbar pain Active Hypoxia Acute
--- NOTE | 2018-12-23 15:23 | PDMN ---
Medical Necessity Medical necessity: [facility] M282 CAP: 88yo w/ c/o cough, dx w/ RLL pneumonia. Initially OBS for workup and tx but change to IP status as pt needs additional MN for IV antibx, pt cont to c/o SOB w/ acute hypoxemic resp fx requiring 3L O2 to keep sats>90% (pt baseline is chronically on 2L) , WBC remains >30. BC pending. Meets [facility] IP criteria for hypoxemia and ongoing parenteral antimicrobials. Hx HTN, thrombocytopenia, polycythemia vera, psuedogout, vertigo, shingles, pneumonia, lumbar fusion, B/L THAs, bladder tumors w/ resect via cystoscopy. Change to IP status 12/23/18@1457 per MD order
[2018-12-23] MEDS ORDERED: FUROSEMIDE 20 MG TAB PO SCH (15:30)
[2018-12-23] MEDS: clonazePAM 1 MG TAB PO SCH ×2 (16:41→22:06)
[2018-12-23] MEDS: GABAPENTIN 100 MG CAP PO SCH (20:46)
[2018-12-23] MEDS: amLODIPine BESYLATE 5 MG TAB PO SCH (20:46)
[2018-12-23] MEDS: ACETAMINOPHEN 650 MG/20.3 ML UDCUP PO PRN (22:21)
[2018-12-23] MEDS: BENZONATATE 100 MG CAP PO PRN (22:23)
[2018-12-23] MEDS ORDERED: AZITHROMYCIN IV 500 MG in NS 250 ML IV SCH (23:30)
[2018-12-24 04:31] LABS: PLATELET COUNT 62 10^3/uL (150-400)
[2018-12-24] MEDS: GABAPENTIN 100 MG CAP PO SCH ×2 (09:55→21:14)
--- NOTE | 2018-12-24 11:55 | HOSPPROG ---
Hospitalist Progress Note Assessment/Plan: #RLL Community Acquired Pneumonia #Acute Hypoxic respiratory failure, baseline is 2 Liters chronically #Hx of Bronchitis, no acute exacerbation at this time. no e/o wheezing #Generalized Weakness due to infection -PT/OT evals #Hx of Diuretic use, denies CHF #HTN -reports not on Lisinopril at home, will d/c -on Amlodipine BID at home. Changed to nightly dosing only. may need further adjustments . Given her age, would allow some permissive HTN. Would also limit BP agents to one if possible #Polycythemia -can f/u with Heme in op setting #thrombocytopenia Dispo: change to inpatient, continue Rocephin and Azithromycin (day 2), F/u Blood cultures, resp cultures. Subjective: Patient reports feeling slightly improved this morning Objective: Vital Signs Temp Pulse Resp BP Pulse Ox 36.6 C 64 14 154/61 H 92 12/24/18 08:00 12/24/18 08:00 12/24/18 08:00 12/24/18 08:00 12/24/18 08:00 Microbiology 12/23/18 18:00 Respiratory Panel (PCR) - Final Nasal, Sinus - Swab Human Metapneumovirus Detected Laboratory Results 12/24/18 03:25 12/23/18 12/24/18 12/25/18 05:59 05:59 05:59 Intake Total 1095 Output Total 300 Balance 1095 -300 - Physical Exam Constitutional: chronically ill appearing Eyes: PERRL Ears, Nose, Mouth, Throat: moist mucous membranes Cardiovascular: regular rate and rhythym Respiratory: reduced air movement Gastrointestinal: soft, non-tender abdomen Skin: normal color Neurologic: AAOx3 Psychiatric: interacting appropriately ICD10 Worksheet Patient Problems: Problems Problem Status Onset Pneumonia Acute Anxiety disorder Active Pseudogout Active right lumbar pain Active Hypoxia Acute
[2018-12-24] MEDS: BENZONATATE 100 MG CAP PO PRN (20:15)
[2018-12-24] MEDS: amLODIPine BESYLATE 5 MG TAB PO SCH (21:14)
[2018-12-24] MEDS: clonazePAM 1 MG TAB PO SCH (21:14)
[2018-12-24] MEDS: ACETAMINOPHEN 650 MG/20.3 ML UDCUP PO PRN (21:14)
[2018-12-25 07:48] VITALS: BP 162/59
--- NOTE | 2018-12-25 09:55 | PDHOMEO2F ---
Home Oxygen Face to Face Home Orders: I certify that a physician or a nurse practitioner or physician's itinerant teacher assistant has had a udcr-sk-eglf encounter with this patient on the date of this order due to the diagnosis listed, which relates to the primary reason the patient requires home oxygen. Alternative treatments have been tried, or considered, and deemed ineffective. It is anticipated that supplemental oxygen will result in improvement with treatment. Home oxygen qualifying diagnosis: Pneumonia SpO2 on room air (%): 83 Frequency of home oxygen needed: continuous Home oxygen liters per minute: 2 Home oxygen delivery device: nasal cannula Concentrator: Yes E-tanks for mobility and back up: Yes If ordering portable O2, is the patient mobile in the home?: Yes I certify that, based on these findings, the home oxygen is medically necessary for this patient for the following length of time. Length of time home oxygen needed: 99 years
--- NOTE | 2018-12-25 09:56 | PDHOMEO2F ---
Home Oxygen Face to Face Home Orders: I certify that a physician or a nurse practitioner or physician's assistant professor of life sciences has had a ydvl-do-ythw encounter with this patient on the date of this order due to the diagnosis listed, which relates to the primary reason the patient requires home oxygen. Alternative treatments have been tried, or considered, and deemed ineffective. It is anticipated that supplemental oxygen will result in improvement with treatment. Home oxygen qualifying diagnosis: PNA SpO2 on room air (%): 83 Frequency of home oxygen needed: continuous Home oxygen liters per minute: 2 Home oxygen delivery device: nasal cannula Concentrator: Yes E-tanks for mobility and back up: Yes If ordering portable O2, is the patient mobile in the home?: Yes I certify that, based on these findings, the home oxygen is medically necessary for this patient for the following length of time. Length of time home oxygen needed: 99 years
[2018-12-25] MEDS: GABAPENTIN 100 MG CAP PO SCH (10:00)
--- NOTE | 2018-12-25 13:40 | PDHOMEO2F ---
Home Oxygen Face to Face Home Orders: I certify that a physician or a nurse practitioner or physician's home care assistant has had a yhry-nl-hzwy encounter with this patient on the date of this order due to the diagnosis listed, which relates to the primary reason the patient requires home oxygen. Alternative treatments have been tried, or considered, and deemed ineffective. It is anticipated that supplemental oxygen will result in improvement with treatment. Home oxygen qualifying diagnosis: Pulmonary Hypertension SpO2 on room air (%): 83 Frequency of home oxygen needed: continuous Home oxygen liters per minute: 2 Home oxygen delivery device: nasal cannula Concentrator: Yes E-tanks for mobility and back up: Yes If ordering portable O2, is the patient mobile in the home?: Yes I certify that, based on these findings, the home oxygen is medically necessary for this patient for the following length of time. Length of time home oxygen needed: 99 years
--- NOTE | 2018-12-25 15:21 | PDDCSUM ---
Discharge Summary Discharge Summary: Date of Admission: 12/23/2018 Date of Discharge: 12/25/2018 Consults: N/A Followup: PCP Hospital Course Problem List: #RLL Community Acquired Pneumonia - CXR performed on admission - S/p 2 days of Ceftriaxone and Azithromycin, transitioned to PO Levaquin this AM, will continue to complete 7 day course #Acute Hypoxic respiratory failure - 2/2 to PNA and Human Metapneumovirus - Was on home 02 @2L at night, home 02 ordered for continuous #Hx of Bronchitis, no acute exacerbation at this time. no e/o wheezing #Generalized Weakness due to infection - PT/OT recommending home #Hx of Diuretic use, denies CHF #HTN -on Amlodipine BID at home. Changed to nightly dosing only. Given her age, would allow some permissive HTN. #Polycythemia -can f/u with Heme in op setting #thrombocytopenia Time spent on discharge was >35 minutes with >50% of time spent on patient education and counseling.
--- NOTE | 2018-12-25 15:29 | PDIAF ---
- Diagnosis Code Status: Do Not Resuscitate - Medication Management Discharge Medications: electronically signed and located in the Home Medication List. - Orders Services needed: Registered Nurse, Physical Therapy, Occupational Therapy Isolation Type: Droplet Isolation - Follow Up Care Current Providers and Referrals: Leslie Alex MD [Primary Care Provider] - As per Instructions
--- NOTE | 2018-12-25 16:48 | ASMTLACE ---
CHRISTELLEE Length of stay for Answers: 2 days current admission Acuity / Level of Answers: Yes Care: Did the patient have an inpatient admission? Comorbidities - select Answers: Other Notes: hypoxia, pneumonia, toñito ycy all that apply themdamari vera, HTN # of Emergency department Answers: 1-2 visits in the last 6 months Score: 7 Date Signed: 12/25/2018 04:47 PM Electronically Signed By:Shruti Garibay RN
--- NOTE | 2018-12-25 17:12 | ASMTDCNOTE ---
Case Management Discharge Discharge Order Complete? Answers: Yes Patient to Obtain Answers: Other Notes: via Kira SANCHEZ Medications Transportation Arranged Answers: Family/Friends Transport will Pick (Date 12/25/2018 12:00 AM & Time) EMTALA Complete Answers: No Notes: N/A Case Management Transport Answers: No Notes: N/A Form Complete Faxed Final Orders Answers: No Notes: N/A Agency/Facility Transfer Answers: No Notes: N/A Report Printed & Faxed to Receiving Agency Family Notified Answers: Yes Notes: Son, Adrián and Kira SANCHEZ aware Discharge Comments Notes: Reviewed chart, spoke with Dr. Da Silva. Pt to discharge home with [facility] today (RN/PT/OT services). Pt to also discharge with home oxygen. Met with pt's Kira SANCHEZ, to discuss home care options. Kira reports that the pt is and lives alone. [facility] list provided. Address and phone number verified. Kira requested CM send a referral to [facility] ([facility] Referral sent via [employer]; confirmed receipt with Zenia. Per Zenia, able to accept pt with a start of care for Wednesday12/26/18. Met with pt to discuss plan. Pt agreeable to homebound status and to home care. Pt states she has had occupational therapy many times and isn't sure she will need it. Pt agreed to let therapies assess current needs at home. Updates provided to SELENE Elizondo and LAURA Malone. Kira insisting Dr. Da Silva re-evaluate pt's arm for swelling and pain prior to discharge. Kira suspects a humeral fracture. Updates provided to Dr. Da Silva; X-ray ordered. Update provided to pt. Pt to discharge home with [facility] home oxygen support for continuous oxygen needs. Spoke with Katherine from [facility] due to several questions from Kira regarding oxygen. Per Katherine, pt is unable to receive a second oxygen concentrator secondary to changes with insurance benefits. Insurance companies will only cover one oxygen concentrator and once per month deliveries of oxygen supplies/tanks. Updates provided to Kira. Katherine to work with pt on portable tank and extension tubing for discharge. CM provided Katherine with Home Oxygen face to face order supporting need for continuous flow and portable tanks. Pt to discharge home following X-ray. [facility] will reach out to pt later tonight or tomorrow to schedule first visit. Pt to follow up as directed. CM available for any further issues or concerns. Discharge Plan: Home with [facility] (RN/PT/OT) and [facility] home oxygen Date Signed: 12/25/2018 05:11 PM Electronically Signed By:Shruti Garibay RN
--- NOTE | 2018-12-25 17:16 | ASDISCHSUM ---
Discharge Information Plan Status:Home with Home Health Medically Cleared to Leave:12/24/2018 Discharge Date:12/24/2018 CM D/C Disposition:Home Health Service ADT D/C Disposition: Projected Discharge Date:12/25/2018 11:00 AM Transportation at D/C:Friend Discharge Delay Reason: Follow-Up Date:12/25/2018 11:00 AM Discharge Slot:2 - 12:01 pm - 18:00 pm Final Diagnosis:Pneumonia, hypoxia, benign essential HTN, polycythemia Placement Information Referral Type:*Home Health Care Services Referral ID:[id number] Provider Name:[facility] [address] [address] Address 2: City:[place] Selection Factors:Patient/Family Choice State:[place] Patient Contact Information Contact Name:MARY Relationship:Friend Address: Work Phone: City: [facility] Phone: [facility]/Zip Code: Email: Financial Information Financial Class:Medicare Primary Plan Desc:MEDICARE INPATIENT Primary Plan Number:[id number] Secondary Plan Desc:OCNNOR OLIVO PPO UNIV [place] Secondary Plan Number:[id number] Assessment Information LACE LACE Length of stay for Answers: 2 days current admission Acuity / Level of Answers: Yes Care: Did the patient have an inpatient admission? Comorbidities - select Answers: Other Notes: hypoxia, pneumonia, toñito ycy all that apply themia vera, HTN # of Emergency department Answers: 1-2 visits in the last 6 months Score: 7 Date Signed: 12/25/2018 04:47 PM Electronically Signed By:Shruti Garibay RN [facility] Initial CM Assessment Living Arrangements What is your living Answers: Alone arrangement? Who do you live with? Type Of Residence What kind of residence do Answers: House you live in? Discharge Plan Comments Coordination Status Comments Notes: Patient is an 88yo female with a hx of hypertension, polycythemia vera who has been admitted for right lower lobe pneumonia, hypoxia, benign essential hypertension, polycythemia, thrombocytopenia, fluid, electrolyte, nutrition. Patient is currently OBS status. Patient states she is DNR/DNI and her MDPOA is Kira Duke ([phone]), a RN at the [facility]. No therapies ordered at this time. D/C plan TBD. CM will follow. Date Signed: 12/23/2018 11:43 AM Electronically Signed By:Vernell Llamas LCSW Case Management Discharge Plan Note Case Management Discharge Discharge Order Complete? Answers: Yes Patient to Obtain Answers: Other Notes: via Kira SANCHEZ Medications Transportation Arranged Answers: Family/Friends Transport will Pick (Date 12/25/2018 12:00 AM & Time) EMTALA Complete Answers: No Notes: N/A Case Management Transport Answers: No Notes: N/A Form Complete Faxed Final Orders Answers: No Notes: N/A Agency/Facility Transfer Answers: No Notes: N/A Report Printed & Faxed to Receiving Agency Family Notified Answers: Yes Notes: SonAdrián and Kira SANCHEZ aware Discharge Comments Notes: Reviewed chart, spoke with Dr. Da Silva. Pt to discharge home with [facility] today (RN/PT/OT services). Pt to also discharge with home oxygen. Met with pt's Kira SANCHEZ, to discuss home care options. Kira reports that the pt is and lives alone. [facility] list provided. Address and phone number verified. Kira requested CM send a referral to [facility] ([facility]). Referral sent via [employer]; confirmed receipt with Zenia. Per Zenia, able to accept pt with a start of care for Wednesday12/26/18. Met with pt to discuss plan. Pt agreeable to homebound status and to home care. Pt states she has had occupational therapy many times and isn't sure she will need it. Pt agreed to let therapies assess current needs at home. Updates provided to SELENE Elizondo and LAURA Malone. Kira insisting Dr. Da Silva re-evaluate pt's arm for swelling and pain prior to discharge. Kira suspects a humeral fracture. Updates provided to Dr. Da Silva; X-ray ordered. Update provided to pt. Pt to discharge home with [facility] home oxygen support for continuous oxygen needs. Spoke with Katherine from [facility] due to several questions from Kira regarding oxygen. Per Katherine, pt is unable to receive a second oxygen concentrator secondary to changes with insurance benefits. Insurance companies will only cover one oxygen concentrator and once per month deliveries of oxygen supplies/tanks. Updates provided to Kira. Katherine to work with pt on portable tank and extension tubing for discharge. CM provided Katherine with Home Oxygen face to face order supporting need for continuous flow and portable tanks. Pt to discharge home following X-ray. [facility] will reach out to pt later tonight or tomorrow to schedule first visit. Pt to follow up as directed. CM available for any further issues or concerns. Discharge Plan: Home with [facility] (RN/PT/OT) and [facility] home oxygen Date Signed: 12/25/2018 05:11 PM Electronically Signed By:Shruti Garibay RN Intervention Information Intervention Type:*MOHINI-Signed Date of Service:12/23/2018 12:43 PM Patient Type:Observation Staff Member:Michelle Barry Hours: Discipline: Severity: Comment:
== END 2018-12-25 18:31 | disposition home health service (06) | DRG 193 ==
LOC: EDUNIT# → F2W 12-23 00:21 → OBSVTOIN 12-23 14:57
PROVIDERS: ADMIT Family Medicine; ATTEND Family Medicine
DX: J12.3 Human metapneumovirus pneumonia (principal); J96.01 Acute respiratory failure with hypoxia; E86.9 Volume depletion, unspecified; I10 Essential (primary) hypertension; D69.6 Thrombocytopenia, unspecified; D45 Polycythemia vera; Z66 Do not resuscitate
CPT/HCPCS: 96365; 97116-GP; 97161-GP; 97165-GO; 97530-GP; 97535-GO; G0378; J0456; J0696

== ENCOUNTER 2019-01-07 23:32 | Inpatient (IN) | payer OTHER ==
[2019-01-08 00:02] LABS: PLATELET COUNT 498 10^3/uL (150-400)
[2019-01-08] MEDS ORDERED: NS 500 ML IV ONE ×2 (00:37→06:01)
[2019-01-08] MEDS ORDERED: MECLIZINE HCL 25 MG TAB PO ONE (01:58)
--- NOTE | 2019-01-08 02:53 | EDPHY ---
H & P Stated Complaint: pt when walking up stairs felt dizzy and racing heart Time Seen by Provider: 01/07/19 23:33 HPI/ROS: HPI The patient presents brought in by ambulance for an episode of dizziness and palpitations which occurred after going up about 10 stairs in her house tonight. The patient is recovering from a community-acquired pneumonia after admission to the hospital. She has been doing well, has in-home care, had been exercising more today than usual going up and down the stairs. At about 10:00 p.m., she was watching television and decided to go up the stairs to take her medication. She began to feel her heart racing, felt lightheaded and nauseated. She felt her strength was not good so she sat down and called an ambulance. She is feeling better now. She is quite tearful and worried about her condition. She has not had a fever, cough, shortness of breath. She has been able to take her medications.. REVIEW OF SYSTEMS 10 systems were reviewed and negative with the exception of the elements mentioned in the history of present illness. 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 Hx: From [place] originally, her sister about 1 year ago, she has 2 sons , she lives independently in a house PHYSICAL General Appearance: Alert, no distress Eyes: Pupils equal and round no pallor or injection ENT, Mouth: Mucous membranes moist Respiratory: There are no retractions, lungs are clear to auscultation Cardiovascular: Regular rate and rhythm Gastrointestinal: Abdomen is soft and non-tender, no masses, bowel sounds normal Neurological: A&O, moves all extremities Skin: Warm and dry, no rashes Musculoskeletal: Neck is supple non tender Extremities: symmetrical, full range of motion Psychiatric: Patient is oriented X 3, there is no agitation Source: Patient Exam Limitations: No limitations - Personal History Current Tetanus/Diphtheria Vaccine: Unsure Current Tetanus Diphtheria and Acellular Pertussis (TDAP): Unsure Tetanus Vaccine Date: about 10 years ago - Medical/Surgical History Hx Asthma: No Hx Chronic Respiratory Disease: No Hx Diabetes: No Hx Cardiac Disease: No Hx Renal Disease: No Hx Cirrhosis: No Hx Alcoholism: No Hx HIV/AIDS: No Hx Splenectomy or Spleen Trauma: No Other PMH: pmh- HTN, PNA, 2010 lumbar fusion. bilsty hip. bladder tumor removed - Social History Smoking Status: Former smoker Constitutional: Initial Vital Signs Temperature (C) 36.6 C 01/07/19 23:35 Heart Rate 69 01/07/19 23:35 Respiratory Rate 16 01/07/19 23:35 Blood Pressure 199/79 H 01/07/19 23:35 O2 Sat (%) 91 L 01/07/19 23:35 O2 Delivery Mode Nasal Cannula O2 (L/minute) 4 Allergies/Adverse Reactions: No Known Allergies Allergy (Verified 01/07/19 23:45) Home Medications: Medication Instructions Recorded Furosemide [Lasix 20 MG (*)] 20 mg PO MWF 01/27/17 Hydroxyurea [Hydrea 500 mg (*)] 500 mg PO MWF 01/27/17 clonazePAM [Clonazepam] 1 mg PO HS 01/27/17 Gabapentin [Neurontin 100 MG (*)] 100 mg PO BID 06/07/18 amLODIPine BESYLATE [Norvasc 5 mg 5 mg PO HS 12/23/18 (*)] guaiFENesin [Mucinex 600 MG (*)] 600 mg PO BID PRN tab.er 12/25/18 levOFLOXACIN [levAQUIN (*)] 750 mg PO Q48H #3 tab 12/25/18 Medical Decision Making - Diagnostics EKG Interpretation: EKG: Complete interpretation has been separately recorded in the [facility] archive. Summary impression: Normal sinus rhythm Imaging Results: Chest x-ray two views shows improved right lower lobe infiltrate, interpreted by me, radiology interpretation is pending. Imaging: I viewed and interpreted images myself Differential Diagnosis: 88-year-old female who lives independently with history of polycythemia vera, recent admission for community-acquired pneumonia now on 2 L of oxygen presents from home brought in by ambulance for episode of dizziness and palpitations while walking up a flight of stairs. Patient now feels better. Vital signs demonstrate elevated blood pressure, she does have a history of hypertension. Her pulse ox is normal on 2 L. Her lungs sound clear. In the emergency department, she was given a small fluid bolus. Basic labs were checked and patient did have elevated WBCs above previous values. Platelets are also elevated, hemoglobin is stable. Chest x-ray looked improved from admission. We attempted to ambulate her, however she felt very dizzy and was only able to walk a few steps before she had to stop and rest. I have given her a dose of meclizine as this has helped her in the past. I suspect she may be suffering from an episode of vertigo verses deconditioning from her recent hospitalization. The patient was observed for about 6 hr in the ER. We attempted to ambulate her again and she was a bit more steady on her feet while using a walker, however she felt short of breath and when she returned to her bed she required 4 L of oxygen for quite some time to maintain a saturation greater than 90%. Am concerned about her going home at this time. I have added on a D-dimer. I have discussed the case with Dr. Donahue and we will admit her to the hospitalist service for dizziness, hypoxia, difficulty ambulating. D-dimer is slightly elevated though just for age. Thus, I will not check CT scan PE protocol. The patient has been seen by the hospitalist and will be admitted. - Data Points Laboratory Results: Laboratory Results 01/07/19 23:40 01/07/19 23:40 01/08/19 01/07/19 01/07/19 02:04 23:40 23:40 WBC 53.18 10^3/uL H* 10^3/uL (3.80-9.50) RBC 4.70 10^6/uL 10^6/uL (4.18-5.33) Hgb 11.6 g/dL L g/dL (12.6-16.3) Hct 40.1 % % (38.0-47.0) MCV 85.3 fL fL (81.5-99.8) MCH 24.7 pg L pg (27.9-34.1) MCHC 28.9 g/dL L g/dL (32.4-36.7) RDW 20.7 % H % (11.5-15.2) Plt Count 498 10^3/uL H 10^3/uL (150-400) MPV 11.4 fL fL (8.7-11.7) Neut % (Auto) Not Reported Lymph % (Auto) Not Reported [place] % (Auto) Not Reported Eos % (Auto) Not Reported Baso % (Auto) Not Reported Nucleat RBC Rel Count Not Reported Absolute Neuts (auto) Not Reported Absolute Lymphs (auto) Not Reported Absolute Monos (auto) Not Reported Absolute Eos (auto) Not Reported Absolute Basos (auto) Not Reported Absolute Nucleated RBC Not Reported Immature Gran % Not Reported Seg Neutrophils % 61.0 % % Band Neutrophils % 6.0 % % Lymphocytes % 15.0 % % Monocytes % 13.0 % % Eosinophils % 5.0 % % Basophils % 0.0 % % Metamyelocytes % 0.0 % % Myelocytes % 0.0 % % Promyelocytes % 0.0 % % Blast Cells % 0.0 % % Immature Gran # Not Reported Absolute Seg Neuts 32.44 10^3/uL H 10^3/uL (1.70-6.50) Absolute Band Neuts 3.19 10^3/uL H 10^3/uL (0.00-0.70) Absolute Lymphocytes 7.98 10^3/uL H 10^3/uL (1.00-3.00) Absolute Monocytes 6.91 10^3/uL H 10^3/uL (0.30-0.80) Absolute Eosinophils 2.66 10^3/uL H 10^3/uL (0.03-0.40) Absolute Basophils 0.00 10^3/uL L 10^3/uL (0.02-0.10) Absolute Metamyelocyte 0.00 10^3/mL 10^3/mL (0.00-0.00) Absolute Myelocytes 0.00 10^3/mL 10^3/mL (0.00-0.00) Absolute Promyelocytes 0.00 10^3/uL 10^3/uL (0.00-0.00) Absolute Plasma Cells 0.00 10^3/uL 10^3/uL (0.00-0.00) Absolute Blast Cells 0.00 10^3/uL 10^3/uL (0.00-0.00) Plasma Cells % 0.0 % % Platelet Estimate INCREASED H (ADEQ) Polychromasia 1+ H Smear Review By Pending Sodium 141 mEq/L mEq/L (135-145) Potassium 4.5 mEq/L mEq/L (3.5-5.2) Chloride 107 mEq/L mEq/L (97-110) Carbon Dioxide 27 mEq/l mEq/l (22-31) Anion Gap 7 mEq/L mEq/L (6-14) BUN 21 mg/dL mg/dL (7-23) Creatinine 0.7 mg/dL mg/dL (0.6-1.0) Estimated GFR > 60 Glucose 184 mg/dL H mg/dL (70-100) Calcium 9.1 mg/dL mg/dL (8.5-10.4) Total Bilirubin 0.6 mg/dL mg/dL (0.1-1.4) AST 27 IU/L IU/L (14-46) ALT 18 IU/L IU/L (9-52) Alkaline Phosphatase 92 IU/L IU/L (38-126) Total Protein 7.2 g/dL g/dL (6.3-8.2) Albumin 3.9 g/dL g/dL (3.5-5.0) Urine Color YELLOW Urine Appearance CLEAR Urine pH 6.0 (5.0-7.5) Ur Specific [place] 1.017 (1.002-1.030) Urine Protein 1+ H (NEGATIVE) Urine Ketones NEGATIVE (NEGATIVE) Urine Blood NEGATIVE (NEGATIVE) Urine Nitrate NEGATIVE (NEGATIVE) Urine Bilirubin NEGATIVE (NEGATIVE) Urine Urobilinogen NEGATIVE EU EU (0.2-1.0) Ur Leukocyte Esterase NEGATIVE (NEGATIVE) Urine RBC 1-3 /hpf /hpf (0-3) Urine WBC 1-3 /hpf /hpf (0-3) Ur Epithelial Cells TRACE /lpf /lpf (NONE-1+) Urine Mucus TRACE /lpf /lpf (NONE-1+) Urine Glucose NEGATIVE (NEGATIVE) Medications Given: Discontinued Medications Sodium Chloride (Ns) 500 mls @ 1,000 mls/hr IV EDNOW ONE PRN Reason: Protocol Stop: 01/08/19 01:06 Last Admin: 01/08/19 00:50 Dose: 500 mls Sodium Chloride (Ns) 500 mls @ 0 mls/hr IV EDNOW ONE; Wide Open PRN Reason: Protocol Stop: 01/08/19 06:02 Last Admin: 01/08/19 06:03 Dose: 500 mls Meclizine HCl (Meclizine Hcl) 25 mg PO EDNOW ONE Stop: 01/08/19 01:59 Last Admin: 01/08/19 02:41 Dose: 25 mg Departure - Departure Disposition: [facility] Acute Clinical Impression: Dizziness, Hypoxia Condition: Fair
[2019-01-08] MEDS ORDERED: ONDANSETRON DISINTEGRATING 4 MG TAB PO PRN (06:10)
[2019-01-08] MEDS ORDERED: ACETAMINOPHEN 325 MG TAB PO PRN (06:10)
[2019-01-08] MEDS ORDERED: ONDANSETRON 4 MG/2 ML VIAL IVP PRN (06:10)
--- NOTE | 2019-01-08 06:36 | PDGENHP ---
History and Physical - Chief Complaint Fatigue - History of Present Illness 88 yo F w/ HTN, polycythemia vera, and recent admission for pneumonia presents with weakness and fatigue. The patient was admitted for treatment of pneumonia from 12/22/18-12/25/18. She was deemed safe for discharge home by PT. She lives alone and has 17 stairs to climb. Last night while climbing up the stairs she became very fatigued and noted her heart racing. As a result she came in to the ED for evaluation. Evaluation in the ED has been mostly unremarkable aside from persistently elevated WBC. She does not feel safe to return home at this time so she is being admitted for observation. Case discussed with ED physician Dr. Crow; records reviewed and summarized above. History Information - Allergies/Home Medication List Allergies/Adverse Reactions: No Known Allergies Allergy (Verified 01/07/19 23:45) Home Medications: Furosemide [Lasix 20 MG (*)] 20 mg PO F 01/27/17 [Last Taken 12/21/18] Hydroxyurea [Hydrea 500 mg (*)] 500 mg PO [facility] 01/27/17 [Last Taken 12/21/18] clonazePAM [Clonazepam] 1 mg PO HS 01/27/17 [Last Taken 12/22/18] Gabapentin [Neurontin 100 MG (*)] 100 mg PO BID 06/07/18 [Last Taken 12/22/18 09 :00] amLODIPine BESYLATE [Norvasc 5 mg (*)] 5 mg PO HS 12/23/18 [Last Taken 12/21/18] I have personally reviewed and updated: family history, medical history - Past Medical History hypertension Additional medical history: Polycythemia Vera - Surgical History Reports: spinal surgery Additional surgical history: b/l THAs - Family History Additional family history: Negative for lung disease - Social History Smoking Status: Former smoker Review of Systems Review of Systems: ROS: 10pt was reviewed & negative except for what was stated in HPI & below Physical Exam Physical Exam: Temp Pulse Resp BP Pulse Ox 36.6 C 66 16 164/59 H 91 L 01/07/19 23:35 01/08/19 06:06 01/08/19 06:06 01/08/19 06:06 01/08/19 06:06 Constitutional: no apparent distress, appears nourished Eyes: PERRL, EOMI Ears, Nose, Mouth, Throat: moist mucous membranes, no oral mucosal ulcers Cardiovascular: regular rate and rhythym, no murmur, rub, or gallop Respiratory: no respiratory distress, clear to auscultation Gastrointestinal: normoactive bowel sounds, soft, non-tender abdomen Skin: warm, normal color Musculoskeletal: full muscle strength, no muscle tenderness Neurologic: AAOx3, CN II-XII Intact Psychiatric: interacting appropriately, not anxious Lab Data & Imaging Review 01/07/19 23:40 01/07/19 23:40 WBC 53.18 10^3/uL (3.80-9.50) H* 01/07/19 23:40 RBC 4.70 10^6/uL (4.18-5.33) 01/07/19 23:40 Hgb 11.6 g/dL (12.6-16.3) L 01/07/19 23:40 Hct 40.1 % (38.0-47.0) 01/07/19 23:40 MCV 85.3 fL (81.5-99.8) 01/07/19 23:40 MCH 24.7 pg (27.9-34.1) L 01/07/19 23:40 MCHC 28.9 g/dL (32.4-36.7) L 01/07/19 23:40 RDW 20.7 % (11.5-15.2) H 01/07/19 23:40 Plt Count 498 10^3/uL (150-400) H 01/07/19 23:40 MPV 11.4 fL (8.7-11.7) 01/07/19 23:40 Neut % (Auto) Not Reported 01/07/19 23:40 Lymph % (Auto) Not Reported 01/07/19 23:40 [place] % (Auto) Not Reported 01/07/19 23:40 Eos % (Auto) Not Reported 01/07/19 23:40 Baso % (Auto) Not Reported 01/07/19 23:40 Nucleat RBC Rel Count Not Reported 01/07/19 23:40 Absolute Neuts (auto) Not Reported 01/07/19 23:40 Absolute Lymphs (auto) Not Reported 01/07/19 23:40 Absolute Monos (auto) Not Reported 01/07/19 23:40 Absolute Eos (auto) Not Reported 01/07/19 23:40 Absolute Basos (auto) Not Reported 01/07/19 23:40 Absolute Nucleated RBC Not Reported 01/07/19 23:40 Immature Gran % Not Reported 01/07/19 23:40 Seg Neutrophils % 61.0 % 01/07/19 23:40 Band Neutrophils % 6.0 % 01/07/19 23:40 Lymphocytes % 15.0 % 01/07/19 23:40 Monocytes % 13.0 % 01/07/19 23:40 Eosinophils % 5.0 % 01/07/19 23:40 Basophils % 0.0 % 01/07/19 23:40 Metamyelocytes % 0.0 % 01/07/19 23:40 Myelocytes % 0.0 % 01/07/19 23:40 Promyelocytes % 0.0 % 01/07/19 23:40 Blast Cells % 0.0 % 01/07/19 23:40 Immature Gran # Not Reported 01/07/19 23:40 Absolute Seg Neuts 32.44 10^3/uL (1.70-6.50) H 01/07/19 23:40 Absolute Band Neuts 3.19 10^3/uL (0.00-0.70) H 01/07/19 23:40 Absolute Lymphocytes 7.98 10^3/uL (1.00-3.00) H 01/07/19 23:40 Absolute Monocytes 6.91 10^3/uL (0.30-0.80) H 01/07/19 23:40 Absolute Eosinophils 2.66 10^3/uL (0.03-0.40) H 01/07/19 23:40 Absolute Basophils 0.00 10^3/uL (0.02-0.10) L 01/07/19 23:40 Absolute Metamyelocyte 0.00 10^3/mL (0.00-0.00) 01/07/19 23:40 Absolute Myelocytes 0.00 10^3/mL (0.00-0.00) 01/07/19 23:40 Absolute Promyelocytes 0.00 10^3/uL (0.00-0.00) 01/07/19 23:40 Absolute Plasma Cells 0.00 10^3/uL (0.00-0.00) 01/07/19 23:40 Absolute Blast Cells 0.00 10^3/uL (0.00-0.00) 01/07/19 23:40 Plasma Cells % 0.0 % 01/07/19 23:40 Platelet Estimate INCREASED (ADEQ) H 01/07/19 23:40 Polychromasia 1+ H 01/07/19 23:40 Sodium 141 mEq/L (135-145) 01/07/19 23:40 Potassium 4.5 mEq/L (3.5-5.2) 01/07/19 23:40 Chloride 107 mEq/L (97-110) 01/07/19 23:40 Carbon Dioxide 27 mEq/l (22-31) 01/07/19 23:40 Anion Gap 7 mEq/L (6-14) 01/07/19 23:40 BUN 21 mg/dL (7-23) 01/07/19 23:40 Creatinine 0.7 mg/dL (0.6-1.0) 01/07/19 23:40 Estimated GFR > 60 01/07/19 23:40 Glucose 184 mg/dL (70-100) H 01/07/19 23:40 Calcium 9.1 mg/dL (8.5-10.4) 01/07/19 23:40 Total Bilirubin 0.6 mg/dL (0.1-1.4) 01/07/19 23:40 AST 27 IU/L (14-46) 01/07/19 23:40 ALT 18 IU/L (9-52) 01/07/19 23:40 Alkaline Phosphatase 92 IU/L (38-126) 01/07/19 23:40 Total Protein 7.2 g/dL (6.3-8.2) 01/07/19 23:40 Albumin 3.9 g/dL (3.5-5.0) 01/07/19 23:40 Urine Color YELLOW 01/08/19 02:04 Urine Appearance CLEAR 01/08/19 02:04 Urine pH 6.0 (5.0-7.5) 01/08/19 02:04 Ur Specific [place] 1.017 (1.002-1.030) 01/08/19 02:04 Urine Protein 1+ (NEGATIVE) H 01/08/19 02:04 Urine Ketones NEGATIVE (NEGATIVE) 01/08/19 02:04 Urine Blood NEGATIVE (NEGATIVE) 01/08/19 02:04 Urine Nitrate NEGATIVE (NEGATIVE) 01/08/19 02:04 Urine Bilirubin NEGATIVE (NEGATIVE) 01/08/19 02:04 Urine Urobilinogen NEGATIVE EU (0.2-1.0) 01/08/19 02:04 Ur Leukocyte Esterase NEGATIVE (NEGATIVE) 01/08/19 02:04 Urine RBC 1-3 /hpf (0-3) 01/08/19 02:04 Urine WBC 1-3 /hpf (0-3) 01/08/19 02:04 Ur Epithelial Cells TRACE /lpf (NONE-1+) 01/08/19 02:04 Urine Mucus TRACE /lpf (NONE-1+) 01/08/19 02:04 Urine Glucose NEGATIVE (NEGATIVE) 01/08/19 02:04 Visualized and Interpreted Chest x-ray results: Yes Chest X-Ray results: normal Assessment & Plan Assessment: 88 yo F w/ HTN, PV< and recent admission for pneumonia presents with fatigue and weakness. Plan: 1. Fatigue, dyspnea - Patient became fatigued, dyspneic, and felt her heart racing while climbing the 17 stairs to her home last evening. I suspect this is mostly due to effects of recent illness and hospitalization. Her CXR ( personally reviewed/interpreted) demonstrates resolved pneumonia. Unclear if her elevated WBC could be contributing, although this is not new. - Admit for observation - Rule out PE w/ d-dimer and CTA if positive - PT/OT evaluations as she may need SNF 2. Acute on chronic hypoxic respiratory failure - Uses 2 L/min nocturnally at baseline; currently requiring 2-3 L/min continuously to maintain O2 sats >89%. - D-dimer to rule out VTE - O2 PRN to maintain sats>89% - Incentive spirometry 3. Leukocytosis - Marked elevation in WBC noted since at least May of 2018. WBC 53k today. She follows with Dr. Pardo as an outpatient and last saw him on Wednesday of this week. - Continue outpatient hematology monitoring 4. PV - On hydroxyurea as an outpatient 5. HTN - Continue home meds pending reconciliation Diet - Regular Code - DNR Ppx - LMWH Dispo - Admit under observation status
[2019-01-08] MEDS: ENOXAPARIN 40 MG/0.4 ML SYR SC SCH (10:03)
[2019-01-08] MEDS ORDERED: guaiFENesin 600 MG TAB.ER PO PRN (11:15)
--- NOTE | 2019-01-08 13:03 | HOSPPROG ---
Hospitalist Progress Note Assessment/Plan: 88 yo F w/ HTN, PV< and recent admission for pneumonia presents with fatigue and weakness. # Fatigue, dyspnea - Patient became fatigued, dyspneic, and felt her heart racing while climbing the 17 stairs to her home last evening. I suspect this is mostly due to effects of recent illness and hospitalization. -CXR demonstrates resolved pneumonia. Unclear if her elevated WBC could be contributing, although this is not new. - Admit for observation - Rule out PE w/ d-dimer and CTA if positive - PT/OT evaluations as she may need SNF -resp PCR # Acute on chronic hypoxic respiratory failure - Uses 2 L/min nocturnally at baseline; currently requiring 2-3 L/min continuously to maintain O2 sats >89%. - D-dimer to rule out VTE - O2 PRN to maintain sats>89% - Incentive spirometry # Leukocytosis - Marked elevation in WBC noted since at least May of 2018. WBC 53k today. - She follows with Dr. Pardo as an outpatient and last saw him on Wednesday of this week. - Continue outpatient hematology monitoring # PV - On hydroxyurea as an outpatient # HTN - Continue home meds Diet - Regular Code - DNR Ppx - LMWH Dispo - Admit under observation status Objective: Vital Signs Temp Pulse Resp BP Pulse Ox 36.8 C 64 18 167/7 H 93 01/08/19 11:37 01/08/19 11:37 01/08/19 11:37 01/08/19 11:37 01/08/19 11:37 01/07/19 01/08/19 01/09/19 05:59 05:59 05:59 Intake Total 120 Output Total 300 Balance -180 ICD10 Worksheet Patient Problems: Problems Problem Status Onset Dizziness Acute Chronic Disease Mgmt/Transitional Care Acute Pseudogout Active right lumbar pain Active Anxiety disorder Active Hypoxia Acute Pneumonia Acute
--- NOTE | 2019-01-08 16:30 | PDMN ---
Medical Necessity Medical necessity: [facility] [facility] Pulmonary Disease: 88 yo presents w/ fatigue, dyspnea, reported heart racing while climbing stairs. Recent PNA, resolved per CXR. Initally OBS but pt in persistent acute on chronic hypoxic resp fx, usually uses 2L/min HS at baseline but still requiring 2-3 L cont to keep O2 sats >89% today w/ increase to 4L. Pt requiring additional MN to cont monitoring and tx of acute resp fx and dx testing. Hx HTN, PCV, spinal surg, B/ L ROSETTE. Change to IP status 01/08/19@1522 per [employer] order
[2019-01-08] MEDS ORDERED: hydrALAZINE 20 MG/ML VIAL IVP PRN (19:17)
[2019-01-08] MEDS: clonazePAM 0.5 MG TAB PO SCH (20:11)
[2019-01-08] MEDS: GABAPENTIN 100 MG CAP PO SCH (20:11)
--- NOTE | 2019-01-09 03:25 | CPEKG ---
Test Reason : OPEN Blood Pressure : / mmHG Vent. Rate : 057 BPM Atrial Rate : 057 BPM P-R Int : 157 ms QRS Dur : 089 ms QT Int : 460 ms P-R-T Axes : 063 005 051 degrees QTc Int : 448 ms Sinus rhythm Atrial premature complex Confirmed by Yoli Crow ([id number]) on 01/09/2019 3:24:56 AM Referred By: Yoli Crow Confirmed By:Yoli Crow
[2019-01-09] MEDS ORDERED: HYDROXYUREA 500 MG CAP PO SCH (09:00)
[2019-01-09] MEDS: ENOXAPARIN 40 MG/0.4 ML SYR SC SCH (09:08)
[2019-01-09] MEDS: FUROSEMIDE 20 MG TAB PO SCH (09:08)
[2019-01-09] MEDS: ASPIRIN EC 81 MG TAB PO SCH (09:08)
[2019-01-09] MEDS: GABAPENTIN 100 MG CAP PO SCH ×2 (09:08→19:43)
--- NOTE | 2019-01-09 09:24 | HOSPPROG ---
Hospitalist Progress Note Assessment/Plan: 88 yo F w/ HTN, PV and recent admission for pneumonia presents with fatigue, dyspnea, racing heart and increased O2 requirement. # Dyspnea, fatigue, palpitations - DDx includes deconditioning from recent PNA and hospitalization vs arrhythmia vs HF vs angina vs PE. CXR personally reviewed/interp, showed improving RLL pneumonia. Unclear if her elevated WBC could be contributing, although this is not new. D dimer elevated, though normal if age adjusted rule applied. Resp PCR neg. - check echo and bnp - trend trop - cont monitoring on telemetry, consider outpt cardiac event monitor - PT/OT evals, may need SNF # Acute on chronic hypoxic respiratory failure - baseline 2 LPM at night, now on 4 LPM - check CTA given increased O2 needs, SOB and elevated d dimer - wean O2 as able # Leukocytosis - chronic, was 74K in 10/2018, down to 26K, now up to 53K. She follows with Dr. Pardo as outpt and last saw him on Wednesday of this week. - Continue outpatient hematology monitoring # PV - On hydroxyurea as an outpatient # HTN - Continue home meds Diet - Regular Code - DNR Ppx - LMWH Dispo - Change to inpt for ongoing evaluation of dyspnea and hypoxemia Subjective: Pt feels ok, still worried about her increased O2 requirement and why she had a racing heart and dyspnea while climbing stairs Wednesday. No CP or SOB at rest. No palpitations. No fevers. No cough. She is using IS. Taking po well. Objective: Vital Signs Temp Pulse Resp BP Pulse Ox 36.6 C 77 16 158/63 H 90 L 01/09/19 07:34 01/09/19 07:34 01/09/19 07:34 01/09/19 07:34 01/09/19 07:34 01/08/19 01/09/19 01/10/19 05:59 05:59 05:59 Intake Total 1250 Output Total 350 500 Balance 900 -500 - Physical Exam Constitutional: no apparent distress Eyes: PERRL Ears, Nose, Mouth, Throat: moist mucous membranes Cardiovascular: regular rate and rhythym, systolic murmur Respiratory: no respiratory distress, clear to auscultation Gastrointestinal: normoactive bowel sounds, soft, non-tender abdomen Skin: warm Musculoskeletal: full muscle strength Neurologic: AAOx3 Psychiatric: interacting appropriately ICD10 Worksheet Patient Problems: Problems Problem Status Onset Dizziness Acute Hypoxia Acute Anxiety disorder Active Pseudogout Active right lumbar pain Active Chronic Disease Mgmt/Transitional Care Acute Pneumonia Acute
[2019-01-09 10:16] LABS: PLATELET COUNT 474 10^3/uL (150-400)
[2019-01-09] MEDS ORDERED: IOHEXOL 350mgI/ML (OMNIPAQUE) 150 ML BTL IV ONE (10:41)
--- NOTE | 2019-01-09 14:04 | ECHO ---
[email or web address] [address] [address] Main: [phone] Fax: Transthoracic Echocardiogram Name: NAOMY BLANCO MR#: [id number] Study Date: 01/09/2019 Study Time: 08:31 AM Date of : 1930 Age: 88 year(s) Height: 154.9 cm (61 in.) Weight: 66.68 kg (147 lb.) BSA: 1.66 m2 Gender: Female Examination: Echo Indication: Cardiac: dyspnea Image Quality: Good Contrast: Requested by: Claudia Borja BP: 158 mmHg/63 mmHg Heart Rate: Rhythm: Indication: Cardiac: dyspnea Procedure Staff Finance Officer: Karon Valdovinos RDCS Reading Physician: Fady Balderrama MD Requesting Provider: Conclusions: Normal size left ventricle. Mild concentric LV hypertrophy. Normal global systolic LV function. The ejection fraction is estimated to be 70-75 %. No regional wall motion abnormality. Diastolic dysfunction is present. . The left atrium is mildly dilated. Mild mitral annular calcification. Mild mitral valve regurgitation is present. The aortic valve is tri-leaflet. Moderate aortic cusp calcification is present. Moderate calcific aortic valve stenosis. AV max PG is 43mmHG. AV mean PG is 23mmHG.. Mild tricuspid regurgitation is present. Trivial pericardial effusion. Left side pleural effusion. Measurements: Chambers Valvular Assessment AV/MV Valvular Assessment TV/PV Normal Normal Normal Name Value Range Name Value Range Name Value Range Ao Tamara (MM): 3.1 cm (2.2 cm-3.7 AV meanP mmHg ( - ) TR Vmax: 2.77 mm/s ( - ) cm) ALMA (VTI): 1.1 cm ( - ) TR PGmax: 31 mmHg ( - ) IVSd (2D): 1.3 cm (0.6 cm-1.1 MV E Vmax: 0.89 m/s ( - ) syst. PAP: 36 mmHg ( - ) cm) MV A Vmax: 1.12 m/s ( - ) LVDd (2D): 4.7 cm (3.9 cm-5.3 MV E/A: 0.79 ( - ) cm) LVDs (2D): 2.0 cm (2.1 cm-4 cm) LVPWd (2D): 1.2 cm ( - ) Patient: NAOMY BLANCO Study Date: 01/09/2019 Page 1 of 2 08:31 AM LVOTd 2.0 cm 2.0 cm mm LVEF (BP): 83 % (>=55 %) EF Range: 70-75 % Continued Measurements: Chambers Valvular Assessment AV/MV Valvular Assessment TV/PV Name Value Name Value Name Value LADs: 3.8 cm MV E' Septal: 0.04 m/s CVP (est.): 5 mmHg LADs Lon.4 cm MV E/E' Septal: 20.70 LA Area: 23.1 cm2 MV E/E' Lateral: 20.20 LA Volume: 66 ml LA Volume Index: 39.8 ml/m2 Additional Vessels Name Value Ao Ascendin.1 cm Findings: Left Ventricle: Normal size left ventricle. Mild concentric LV hypertrophy. Normal global systolic LV function. The ejection fraction is estimated to be 70-75 %. No regional wall motion abnormality. Diastolic dysfunction is present. . Right Ventricle: Normal size right ventricle. Left Atrium: The left atrium is mildly dilated. Right Atrium: The right atrium is normal in size. Mitral Valve: Mild mitral annular calcification. Mild mitral valve regurgitation is present. Aortic Valve: The aortic valve is tri-leaflet. Moderate aortic cusp calcification is present. Moderate calcific aortic valve stenosis. AV max PG is 43mmHG. AV mean PG is 23mmHG.. Tricuspid Valve: The tricuspid valve is normal in appearance and function. Mild tricuspid regurgitation is present. Pulmonic Valve: The pulmonic valve is normal in appearance and function. Trivial pulmonic valve regurgitation. Aorta: The aorta is normal. Pericardium: Trivial pericardial effusion. Left side pleural effusion. (No Signature Object) Patient: NAOMY BLANCO Study Date: 01/09/2019 Page 2 of 2 08:31 AM [id number]
--- NOTE | 2019-01-09 15:58 | ASMTCMCOM ---
CM Note CM Note Notes: Patient plan of care reviewed in am rounds. Patient requiring more oxygen. Is current with [facility]. Referral in allscripts. CM to follow for needs. Plan: TBD Date Signed: 01/09/2019 03:57 PM Electronically Signed By:Tona Sky RN
[2019-01-09] MEDS: clonazePAM 0.5 MG TAB PO SCH (19:43)
[2019-01-10 06:01] LABS: PLATELET COUNT 380 10^3/uL (150-400)
[2019-01-10] MEDS ORDERED: HYDROXYUREA 500 MG CAP PO SCH (09:00)
[2019-01-10] MEDS: ENOXAPARIN 40 MG/0.4 ML SYR SC SCH (09:04)
[2019-01-10] MEDS: FUROSEMIDE 20 MG TAB PO SCH (09:05)
[2019-01-10] MEDS: GABAPENTIN 100 MG CAP PO SCH (09:07)
[2019-01-10] MEDS: ASPIRIN EC 81 MG TAB PO SCH (09:07)
--- NOTE | 2019-01-10 09:32 | PDIAF ---
- Diagnosis Diagnosis: pneumonia Code Status: Do Not Resuscitate - Medication Management Discharge Medications: electronically signed and located in the Home Medication List. PICC Care - Routine: N/A - Orders Services needed: Home Care, Registered Nurse, Physical Therapy, Occupational Therapy Home Care Face to Face: I certify that this patient was under my care and that I had the required [id number] encounter meeting the encounter requirements on the discharge day. My findings support the fact that the patient is homebound as defined in Home Care Face to Face Continued: CMS Chapter 7 Medicare Benefits Manual 30.1.1 , The condition of the patient is such that there exists a normal inability to leave home and consequently, leaving home would require a considerable and taxing effort. Isolation Type: None Diet Recommendation: no restrictions on diet - Follow Up Care Current Providers and Referrals: Leslie Alex MD [Primary Care Provider] - As per Instructions Fady Balderrama MD [Medical Doctor] -
--- NOTE | 2019-01-10 09:32 | PDHOMEO2F ---
Home Oxygen Face to Face Home Orders: I certify that a physician or a nurse practitioner or physician's instructional assistant has had a [id number] encounter with this patient on the date of this order due to the diagnosis listed, which relates to the primary reason the patient requires home oxygen. Alternative treatments have been tried, or considered, and deemed ineffective. It is anticipated that supplemental oxygen will result in improvement with treatment. Home oxygen qualifying diagnosis: pulmonary hypertension SpO2 on room air (%): 83 Frequency of home oxygen needed: continuous Home oxygen liters per minute: 3-4 Home oxygen delivery device: nasal cannula Concentrator: Yes E-tanks for mobility and back up: Yes If ordering portable O2, is the patient mobile in the home?: Yes I certify that, based on these findings, the home oxygen is medically necessary for this patient for the following length of time. Length of time home oxygen needed: 99 years (needs portable O2, already has home O2)
--- NOTE | 2019-01-10 10:05 | ASMTLACE ---
LACE Length of stay for Answers: 1 day current admission Acuity / Level of Answers: Yes Care: Did the patient have an inpatient admission? Comorbidities - select Answers: Other Notes: HTN all that apply # of Emergency department Answers: 3-4 visits in the last 6 months Score: 8 Date Signed: 01/10/2019 10:05 AM Electronically Signed By:Tona Sky RN
--- NOTE | 2019-01-10 10:10 | ASMTCMCOM ---
CM Note CM Note Notes: Medically cleared for discharge to home with home oxygen and HHC. Call to [facility] . Orders in computer. CM availble should other needs arise. Plan: Dc with oxygen and HHC. Date Signed: 01/10/2019 10:09 AM Electronically Signed By:Tona Sky RN
[2019-01-10 15:18] VITALS: BP 183/68
--- NOTE | 2019-01-10 15:36 | GDS ---
[f rep st] DISCHARGE SUMMARY DISCHARGE DIAGNOSES: 1. Heart palpitations. 2. Dyspnea. 3. Acute on chronic hypoxemic respiratory failure secondary to pulmonary hypertension and diastolic heart failure. 4. Pulmonary hypertension. 5. Polycythemia vera. 6. Hypertension. 7. Valvular heart disease including mild mitral regurgitation and moderate aortic stenosis. IMAGING STUDIES/PROCEDURES: 1. Echocardiogram showed mild left ventricular hypertrophy with normal LV function. Ejection fracti on of 70% to 75% percent. No regional wall motion abnormalities. Diastolic dysfunction is present. Mild MR, moderate and mild TR are noted with trivial pericardial effusion, and left-sided pleural effusion. 2. CT pulmonary angiogram, January 09, 2019, is negative for pulmonary embolism. Mild amount of bi lateral lower lobe atelectasis versus scarring is noted. No evidence of consolidation and small bila teral pleural effusions. HISTORY OF DETAILS: Please see dictated history and physical dated January 08, 2019. In brief, the patient was an 88-year-old female with history of hypertension, polycythemia vera, and pulmonary hyp ertension who was recently hospitalized for pneumonia, who returns to the emergency department with w eakness and an episode of heart palpitations. She left the hospital on December 25 and discharged kasia e independently. After climbing a flight of stairs, she noted feeling very fatigued and noticed her heart racing. This was associated with some nausea. She was admitted to the hospital for further ev aluation. HOSPITAL COURSE: Patient was admitted to the Med/Surg unit. Repeat chest x-ray showed improved, joe rly resolved pneumonia. D-dimer was elevated and she underwent CT pulmonary angiogram which was nega tive for PE. Echocardiogram reveals evidence of diastolic dysfunction, though she did not have a sig nificantly elevated BNP in the 400s. Her troponins were negative. Her TSH was normal. She had no e vidence of arrhythmia on telemetry monitoring. It is possible she is simply deconditioned from her r ecent hospitalization for pneumonia, or she may have had an episode of arrhythmia such as atrial fibr illation. I recommended she have an outpatient cardiac event monitor and spoke to Lisa Hayden from the Cardiology service who will arrange for this. She will have follow up with [facility] in 1 month. In addition, I recommend she continue to use her oxygen during the day and night. She is cu rrently requiring 3-4 L/minute. DISPOSITION: Patient is discharged home in stable condition. FOLLOWUP: 1. Leslie Alex MD, primary care. 2. Jac Pardo MD, Oncology, for followup of her polycythemia. 3. [facility] in 1 month for review of outpatient cardiac event monitoring results. MEDICATIONS ON DISCHARGE: Please see [email or web address] for complete updated medication list. There are no ne w medications on discharge. Her Hydrea dose is increased to 500 mg p.o. daily after discussion with Oncology. She will continue all other outpatient medications as previously prescribed includin. Lasix 20 mg p.o. daily. 2. Klonopin 1 mg p.o. at bedtime. 3. Gabapentin 100 mg p.o. twice daily. 4. Mucinex 600 mg p.o. twice daily p.r.n. 5. Aspirin 81 mg p.o. daily. 6. Norvasc 2.5 mg p.o. at bedtime. /[id number]/MODL
== END 2019-01-10 19:00 | disposition home health service (06) | DRG 308 ==
LOC: EDUNIT# → F1N 01-08 09:17 → OBSVTOIN 01-08 15:22
PROVIDERS: ADMIT Student in an Organized Health Care Education/Training Program; ATTEND Student in an Organized Health Care Education/Training Program
DX: R00.2 Palpitations (principal); R53.83 Other fatigue; J96.21 Acute and chronic respiratory failure with hypoxia; I27.21 Secondary pulmonary arterial hypertension; I50.30 Unspecified diastolic (congestive) heart failure; D45 Polycythemia vera; D72.829 Elevated white blood cell count, unspecified; I11.0 Hypertensive heart disease with heart failure; I35.1 Nonrheumatic aortic (valve) insufficiency; Z98.1 Arthrodesis status; Z87.891 Personal history of nicotine dependence
CPT/HCPCS: 97161-GP; 97165-GO; 97535-GO; J0360; J1650; Q9967

== ENCOUNTER 2019-01-16 23:03 | Inpatient (IN) | payer OTHER ==
[2019-01-16] MEDS ORDERED: NS 500 ML IV ONE (23:14)
--- NOTE | 2019-01-16 23:19 | EDPHY ---
H & P Time Seen by Provider: 01/16/19 23:17 HPI/ROS: HPI CHIEF COMPLAINT: "I am having a panic attack" HISTORY OF PRESENT ILLNESS: This is a very pleasant 88-year-old female she presents emergency room by EMS after she called 911 stating that she was having a panic attack. EMS spent a rather long time with her at her house over 30 min patient initially did not want come to the hospital however was noted her blood pressure was high and was recommend she come to the emergency room. The patient took 1 mg p.o. Lorazepam prior to arrival. She states this helped her greatly. The patient denies any chest pain. Past Medical History: Significant medical history for pulmonary hypertension, panic attacks, CHF, diastolic heart failure, oxygen dependency Past Surgical History: No recent surgery Social History: Denies drugs alcohol tobacco. Resides in a private residence alone. Family History: Noncontributory ROS REVIEW OF SYSTEMS: 10 Systems were reviewed and negative with the exception of the elements mentioned in the history of present illness. Exam Constitutional triage nursing summary reviewed, vital signs reviewed, awake/ alert. Hypertensive upon arrival. 200/100. Eyes normal conjunctivae and sclera, EOMI, PERRLA. HENT normal inspection, atraumatic, moist mucus membranes, no epistaxis, neck supple/ no meningismus, no raccoon eyes. Respiratory clear to auscultation bilaterally, normal breath sounds, no respiratory distress, no wheezing. Cardiovascular rate normal, regular rhythm, no murmur, no edema, distal pulses normal. Gastrointestinal soft, non-tender, no rebound, no guarding, normal bowel sounds, no distension, no pulsatile mass. Genitourinary no CVA tenderness. Musculoskeletal no midline vertebral tenderness, full range of motion, no calf swelling, no tenderness of extremities, no meningismus, good pulses, neurovascularly intact. Skin pink, warm, & dry, no rash, skin atraumatic. Neurologic awake, alert and oriented x 3, AAOx3, moves all 4 extremities equally, motor intact, sensory intact, CN II-XII intact, normal cerebellar, normal vision, normal speech. Psychiatric normal mood/affect. Heme/Lymph/Immune no lymphadenopathy. Differential Diagnosis: Includes but is not limited to in a particular order anxiety attack, panic attack, hypertensive urgency, hypertensive emergency re- Medical Decision Making: Plan for this patient IV establishment, cardiac technologist, EKG, basic blood work, chest x-ray and observed. Re-evaluation: EKG interpretation by me on record in [employer] system. Impression time of EKG 2344, sinus rhythm rate of 60, LVH present. No signs of acute ischemia or cardiac arrhythmia. Troponin 0.02. White count 996[address]. When I trend this she has been much higher. She does have a history of polycythemia vera 0153: Patient re-evaluated this time resting comfortably no denies any chest pain. But is noted be hypertensive. She is very concerned about this. Blood pressure in the 200s over 100s. Currently 180s. She takes amlodipine 2.5 mg in the morning.. 0157: Spoke with Dr. Slater, discussed case in detail. Plan for observation today in the hospital for hypertension. Patient lives alone, she is elderly close to 89 with multiple chronic medical problems including diastolic heart failure pulmonary hypertension she arrives here very high blood pressure anxiety. Her anxiety is well controlled at this time. Infectious sleeping here in the ER however blood pressure remains high 190s over 100. Plan for observation. Dr. Slater accepts. Source: Patient, EMS - Personal History Tetanus Vaccine Date: about 10 years ago - Medical/Surgical History Hx Asthma: No Hx Chronic Respiratory Disease: No Hx Diabetes: No Hx Cardiac Disease: No Hx Renal Disease: No Hx Cirrhosis: No Hx Alcoholism: No Hx HIV/AIDS: No Hx Splenectomy or Spleen Trauma: No Other PMH: pmh- HTN, PNA, 2010 lumbar fusion. bilsty hip. bladder tumor removed, polycythemia vera - Social History Smoking Status: Former smoker Constitutional: Initial Vital Signs Temperature (C) 36.4 C 01/16/19 23:20 Heart Rate 70 01/16/19 23:20 Respiratory Rate 20 01/16/19 23:20 Blood Pressure 211/91 H 01/16/19 23:20 O2 Sat (%) 93 01/16/19 23:20 O2 Delivery Mode Room Air O2 (L/minute) 2 Allergies/Adverse Reactions: No Known Allergies Allergy (Verified 01/16/19 23:19) Home Medications: Medication Instructions Recorded Furosemide [Lasix 20 MG (*)] 20 mg PO DAILY 01/27/17 clonazePAM [Clonazepam] 1 mg PO HS 01/27/17 Gabapentin [Neurontin 100 MG (*)] 100 mg PO BID 06/07/18 guaiFENesin [Mucinex 600 MG (*)] 600 mg PO BID PRN tab.er 12/25/18 Aspirin EC [Aspirin EC 81 mg (*)] 81 mg PO DAILY 01/08/19 amLODIPine BESYLATE [Norvasc 2.5 2.5 mg PO HS 01/08/19 mg (*)] Hydroxyurea [Hydrea 500 mg (*)] 500 mg PO DAILY cap 01/10/19 Medical Decision Making - Diagnostics Imaging Results: Imaging Impressions Chest X-Ray 01/16/19 23:14 Impression: 1. Stable mild cardiomegaly. 2. Decreased inspiration. - Data Points Laboratory Results: Laboratory Results 01/16/19 23:30 01/16/19 23:30 01/17/19 01/16/19 01/16/19 00:00 23:30 23:30 WBC 37.40 10^3/uL H 10^3/uL (3.80-9.50) RBC 4.74 10^6/uL 10^6/uL (4.18-5.33) Hgb 11.7 g/dL L g/dL (12.6-16.3) Hct 39.2 % % (38.0-47.0) MCV 82.7 fL fL (81.5-99.8) MCH 24.7 pg L pg (27.9-34.1) MCHC 29.8 g/dL L g/dL (32.4-36.7) RDW 20.7 % H % (11.5-15.2) Plt Count 226 10^3/uL 10^3/uL (150-400) MPV 11.9 fL H fL (8.7-11.7) Neut % (Auto) Not Reported Lymph % (Auto) Not Reported [place] % (Auto) Not Reported Eos % (Auto) Not Reported Baso % (Auto) Not Reported Nucleat RBC Rel Count Not Reported Absolute Neuts (auto) Not Reported Absolute Lymphs (auto) Not Reported Absolute Monos (auto) Not Reported Absolute Eos (auto) Not Reported Absolute Basos (auto) Not Reported Absolute Nucleated RBC Not Reported Immature Gran % Not Reported Seg Neutrophils % 73.0 % % Band Neutrophils % 3.0 % % Lymphocytes % 7.0 % % Monocytes % 6.0 % % Eosinophils % 4.0 % % Basophils % 3.0 % % Metamyelocytes % 4.0 % % Myelocytes % 0.0 % % Promyelocytes % 0.0 % % Blast Cells % 0.0 % % Immature Gran # Not Reported Absolute Seg Neuts 27.30 10^3/uL H 10^3/uL (1.70-6.50) Absolute Band Neuts 1.12 10^3/uL H 10^3/uL (0.00-0.70) Absolute Lymphocytes 2.62 10^3/uL 10^3/uL (1.00-3.00) Absolute Monocytes 2.24 10^3/uL H 10^3/uL (0.30-0.80) Absolute Eosinophils 1.50 10^3/uL H 10^3/uL (0.03-0.40) Absolute Basophils 1.12 10^3/uL H 10^3/uL (0.02-0.10) Absolute Metamyelocyte 1.50 10^3/mL H 10^3/mL (0.00-0.00) Absolute Myelocytes 0.00 10^3/mL 10^3/mL (0.00-0.00) Absolute Promyelocytes 0.00 10^3/uL 10^3/uL (0.00-0.00) Absolute Plasma Cells 0.00 10^3/uL 10^3/uL (0.00-0.00) Nucleated RBCs 0 /100 WBC /100 WBC (0-0) Absolute Blast Cells 0.00 10^3/uL 10^3/uL (0.00-0.00) Plasma Cells % 0.0 % % Platelet Estimate ADEQUATE (ADEQ) Polychromasia 1+ H Hypochromasia 1+ H Microcytic Cells 1+ H Tear Drop Cells 1+ H Sodium 137 mEq/L mEq/L (135-145) Potassium 4.1 mEq/L mEq/L (3.5-5.2) Chloride 105 mEq/L mEq/L (97-110) Carbon Dioxide 25 mEq/l mEq/l (22-31) Anion Gap 7 mEq/L mEq/L (6-14) BUN 23 mg/dL mg/dL (7-23) Creatinine 0.7 mg/dL mg/dL (0.6-1.0) Estimated GFR > 60 Glucose 157 mg/dL H mg/dL (70-100) Calcium 9.1 mg/dL mg/dL (8.5-10.4) POC Troponin I 0.02 ng/mL ng/mL (0.00-0.08) Medications Given: Discontinued Medications Sodium Chloride (Ns) 500 mls @ 1,000 mls/hr IV EDNOW ONE PRN Reason: Protocol Stop: 01/16/19 23:43 Last Admin: 01/16/19 23:31 Dose: 500 mls Point of Care Test Results: Chemistry 01/17/19 00:00 POC Troponin I 0.02 ng/mL ng/mL (0.00-0.08) Departure - Departure Disposition: [facility] Inpatient Acute Clinical Impression: Hypertensive urgency Condition: Fair Referrals: Leslie Alex MD [Primary Care Provider] - As per Instructions
[2019-01-17 00:15] LABS: PLATELET COUNT 226 10^3/uL (150-400)
[2019-01-17] MEDS ORDERED: amLODIPine BESYLATE 5 MG TAB PO ONE (01:58)
[2019-01-17] MEDS ORDERED: ONDANSETRON DISINTEGRATING 4 MG TAB PO PRN (02:15)
[2019-01-17] MEDS ORDERED: LORazepam 0.5 MG TAB PO PRN (02:15)
[2019-01-17] MEDS ORDERED: ONDANSETRON 4 MG/2 ML VIAL IVP PRN (02:15)
[2019-01-17] MEDS ORDERED: ACETAMINOPHEN 325 MG TAB PO PRN (02:15)
--- NOTE | 2019-01-17 04:59 | PDGENHP ---
History and Physical - Chief Complaint Anxiety attack - History of Present Illness Source-patient provides history is fair historian. EMR was reviewed and case discussed with ED provider. HPI - pleasant 88-year-old female with past medical history significant for chronic hypoxic respiratory failure with history hypertension, diastolic CHF, polycythemia vera, HTN, of a heart disease including mild MR and moderate aortic stenosis, who presents emergency department today via EMS after her neighbors called. Patient called her neighbors that she was having a panic attack which she has had previously. She reports that she developed palpitations and generalized weakness. She denies any acute stressors this evening and she was sitting looking at her book at home. Patient lives alone. She saw Cardiology today in clinic a notes besides a aortic stenosis there are no no other acute abnormalities ongoing. Patient was recently discharged from hospital 01/10/19 falling episode of dizziness, palpitations and shortness of breath. Patient was discharged with event monitor. She reports that she pushed her monitor when her symptoms came on. Patient reports that she was feeling very scared and that she is alone in her home. EMS arrived and noted that patient's blood pressure was elevated SBP greater than 200. Patient was given a dose of Ativan however blood pressures remained elevated. Patient denies any chest pain. She did experience initial palpitations with onset of her symptoms. Denies shortness of breath. She did feel like she became weak all over but denies any presyncope or syncope. History Information - Allergies/Home Medication List Allergies/Adverse Reactions: No Known Allergies Allergy (Verified 01/16/19 23:19) Home Medications: Furosemide [Lasix 20 MG (*)] 20 mg PO DAILY 01/27/17 [Last Taken 01/07/19] clonazePAM [Clonazepam] 1 mg PO HS 01/27/17 [Last Taken 01/07/19] Gabapentin [Neurontin 100 MG (*)] 100 mg PO BID 06/07/18 [Last Taken 01/07/19] Aspirin EC [Aspirin EC 81 mg (*)] 81 mg PO DAILY 01/08/19 [Last Taken 01/07/19] amLODIPine BESYLATE [Norvasc 2.5 mg (*)] 2.5 mg PO HS 01/08/19 [Last Taken 01/07] I have personally reviewed and updated: family history, medical history, social history, surgical history - Past Medical History hypertension Additional medical history: Polycythemia Vera. Chronic hypoxic respiratory failure secondary to pulmonary hyper. Tension diastolic CHF. Valvular heart disease including mild MR and moderate aortic stenosis. HTN. Vertigo. Shingles. Sudafed thrombocytopenia - Surgical History Reports: spinal surgery Additional surgical history: Lumbar fusion L3/4. Bilateral ROSETTE. Cystoscopy with bladder tumor section. Cataract extraction with lens placement bilaterally. - Family History Additional family history: Negative for lung disease - Social History Smoking Status: Former smoker Alcohol Use: None Drug Use: None Additional social history: Patient is and lives but alone in her home. She has 2 adult sons who both live out of [facility] [place] in [place]. Cor status-DNR DNI. Review of Systems Review of Systems: ROS: 10pt was reviewed & negative except for what was stated in HPI & below Constitutional: Reports: no symptoms EENMT: Reports: no symptoms Cardiac: Reports: palpitations. Denies: chest pain, edema, lightheadedness Respiratory: Reports: no symptoms Gastrointestinal: Reports: no symptoms Genitourinary: Reports: no symptoms Muscolosketal: Reports: no symptoms Skin: Reports: no symptoms Neurological: Reports: anxiety, weakness (Generalized deconditioning/weakness.) . Denies: depressed Hematologic/Lymphatic: Reports: no symptoms Physical Exam Physical Exam: Selected Entries 01/16/19 23:20 Heart Rate 70 Respiratory 20 Rate O2 Sat (%) 93 Temperature (C) 36.4 C Blood Pressure 211/91 H Mean Arterial 131 H Pressure (MAP) O2 (L/minute) 2 O2 Delivery Nasal Cannula Mode Temp Pulse Resp BP Pulse Ox 36.6 C 55 L 18 186/69 H 97 01/17/19 02:20 01/17/19 02:20 01/17/19 02:20 01/17/19 02:20 01/17/19 02:20 O2 (L/minute) 2 Constitutional: no apparent distress, chronically ill appearing, other (NAD. Pleasant elderly frail-appearing female lying quietly in bed. Does appear fatigued and a little bit anxious.) Eyes: PERRL Lab Data & Imaging Review 01/16/19 23:30 01/16/19 23:30 WBC 37.40 10^3/uL (3.80-9.50) H 01/16/19 23:30 RBC 4.74 10^6/uL (4.18-5.33) 01/16/19 23:30 Hgb 11.7 g/dL (12.6-16.3) L 01/16/19 23:30 Hct 39.2 % (38.0-47.0) 01/16/19 23:30 MCV 82.7 fL (81.5-99.8) 01/16/19 23:30 MCH 24.7 pg (27.9-34.1) L 01/16/19 23:30 MCHC 29.8 g/dL (32.4-36.7) L 01/16/19 23:30 RDW 20.7 % (11.5-15.2) H 01/16/19 23:30 Plt Count 226 10^3/uL (150-400) 01/16/19 23:30 MPV 11.9 fL (8.7-11.7) H 01/16/19 23:30 Neut % (Auto) Not Reported 01/16/19 23:30 Lymph % (Auto) Not Reported 01/16/19 23:30 [place] % (Auto) Not Reported 01/16/19 23:30 Eos % (Auto) Not Reported 01/16/19 23:30 Baso % (Auto) Not Reported 01/16/19 23:30 Nucleat RBC Rel Count Not Reported 01/16/19 23:30 Absolute Neuts (auto) Not Reported 01/16/19 23:30 Absolute Lymphs (auto) Not Reported 01/16/19 23:30 Absolute Monos (auto) Not Reported 01/16/19 23:30 Absolute Eos (auto) Not Reported 01/16/19 23:30 Absolute Basos (auto) Not Reported 01/16/19 23:30 Absolute Nucleated RBC Not Reported 01/16/19 23:30 Immature Gran % Not Reported 01/16/19 23:30 Seg Neutrophils % 73.0 % 01/16/19 23:30 Band Neutrophils % 3.0 % 01/16/19 23:30 Lymphocytes % 7.0 % 01/16/19 23:30 Monocytes % 6.0 % 01/16/19 23:30 Eosinophils % 4.0 % 01/16/19 23:30 Basophils % 3.0 % 01/16/19 23:30 Metamyelocytes % 4.0 % 01/16/19 23:30 Myelocytes % 0.0 % 01/16/19 23:30 Promyelocytes % 0.0 % 01/16/19 23: Blast Cells % 0.0 % 01/16/19 23: Immature Gran # Not Reported 01/16/19 23:30 Absolute Seg Neuts 27.30 10^3/uL (1.70-6.50) H 01/16/19 23:30 Absolute Band Neuts 1.12 10^3/uL (0.00-0.70) H 01/16/19 23:30 Absolute Lymphocytes 2.62 10^3/uL (1.00-3.00) 01/16/19 23:30 Absolute Monocytes 2.24 10^3/uL (0.30-0.80) H 01/16/19: Absolute Eosinophils 1.50 10^3/uL (0.03-0.40) H 01/16/19 23:30 Absolute Basophils 1.12 10^3/uL (0.02-0.10) H 01/16/19 23: Absolute Metamyelocyte 1.50 10^3/mL (0.00-0.00) H 01/16/19 23:30 Absolute Myelocytes 0.00 10^3/mL (0.00-0.00) 01/16/19: Absolute Promyelocytes 0.00 10^3/uL (0.00-0.00) 01/16/19 23:30 Absolute Plasma Cells 0.00 10^3/uL (0.00-0.00) 01/16/19:30 Nucleated RBCs 0 /100 WBC (0-0) 01/16/19: Absolute Blast Cells 0.00 10^3/uL (0.00-0.00) 01/16/19 23:30 Plasma Cells % 0.0 % 01/16/19:30 Platelet Estimate ADEQUATE (ADEQ) 01/16/19 23:30 Polychromasia 1+ H 01/16/19 23:30 Hypochromasia 1+ H 01/16/19 23:30 Microcytic Cells 1+ H 01/16/19 23:30 Tear Drop Cells 1+ H 01/16/19 23:30 Sodium 137 mEq/L (135-145) 01/16/19 23:30 Potassium 4.1 mEq/L (3.5-5.2) 01/16/19 23:30 Chloride 105 mEq/L (97-110) 01/16/19 23:30 Carbon Dioxide 25 mEq/l (22-31) 01/16/19 23:30 Anion Gap 7 mEq/L (6-14) 01/16/19 23:30 BUN 23 mg/dL (7-23) 01/16/19 23:30 Creatinine 0.7 mg/dL (0.6-1.0) 01/16/19 23:30 Estimated GFR > 60 01/16/19 23:30 Glucose 157 mg/dL (70-100) H 01/16/19 23:30 Calcium 9.1 mg/dL (8.5-10.4) 01/16/19 23:30 POC Troponin I 0.02 ng/mL (0.00-0.08) 01/17/19 00:00 Assessment & Plan Assessment: #Hypertensive urgency (Acute) - BPs improved after amlodipine received in the ED. will increase AM dose to 5mg. continue lasix in the morning. ativan available prn for anxiety. #Anxiety - ativan prn. Patient admits to concerns of being scared that she lives alone and is having similar episodes over the last several weeks. She notes that she does not have any friends or family available to stay with her during the course of her event monitor study is on going. I did discuss with the patient that it may be beneficial to have somebody stay with her until her so all her studies return. She reports that she has no family locally as her sons live out of state and she does not want to bother them. She notes also that her friends are all her age and not able to stay with her. I did discuss option for case management to visit with the patient and consider potentially a senior living facility until patient's studies are completed but patient declines this option as well. #Palpitations - EKG normal sinus rhythm in the 60s to 70s. LVH noted. No tachyarrhythmias observed. Patient does have a event monitor in place. # leukocytosis-chronic downtrend from last discharge based on history of polycythemia vera. Patient is afebrile no evidence of infectious process at this time. Chronic medical issues # chronic hypoxic respiratory failure #Pulmonary hypertension #Chronic compensated diastolic CHF #Polycythemia vera #Mitral regurg #Aortic stenosis FEN - saline lock IV. Cardiac diet as tolerated. PPX-SCDs. Anticoagulation if patient should stay additional day. Cor status-DNR DNI Disposition-patient admitted observation status on PCU floor for cardiac monitoring and treatment of her blood pressure which is downtrending. Anticipate less than 2 midnight stay.
[2019-01-17] MEDS: FUROSEMIDE 20 MG TAB PO SCH (08:05)
[2019-01-17] MEDS: ENOXAPARIN 40 MG/0.4 ML SYR SC SCH (08:06)
--- NOTE | 2019-01-17 08:16 | CPEKG ---
Test Reason : OPEN Blood Pressure : / mmHG Vent. Rate : 060 BPM Atrial Rate : 059 BPM P-R Int : 153 ms QRS Dur : 089 ms QT Int : 447 ms P-R-T Axes : 063 -13 054 degrees QTc Int : 447 ms Sinus rhythm Left ventricular hypertrophy Confirmed by Burt Webster ([id number]) on 01/17/2019 8:16:04 AM Referred By: Burt Webster Confirmed By:Burt Webster
[2019-01-17] MEDS ORDERED: amLODIPine BESYLATE 5 MG TAB PO SCH (09:00)
--- NOTE | 2019-01-17 15:07 | ASMTCMCOM ---
CM Note CM Note Notes: Pt is an 88yr old admitted with HTN & Anxiety. CM met with Pt to discuss relaxation techniques, she was not interested. I asked if I could call her family but she declined me doing so. Pt reports she has been to [facility] and is Not interested in going back. Dr Zavala was made aware of Pt's concerns and will visit with her as soon as he can. No therapies ordered at this time. CM available if needs arise. Date Signed: 01/17/2019 03:06 PM Electronically Signed By:Nimco Daniels
[2019-01-17] MEDS ORDERED: guaiFENesin 600 MG TAB.ER PO PRN (15:24)
--- NOTE | 2019-01-17 15:29 | HOSPPROG ---
Hospitalist Progress Note Assessment/Plan: 88yo F with anxiety/panic attacks, chronic diastolic CHF, chronic respiratory failure, PV here with panic attack and significantly elevated BP. 1. Severely elevated BP: Due to anxiety. Now improved - Increased home amlodipine 2.5->5 with good control 2. Anxiety, panic attacks: She has had recurrent admissions for this. No obvious trigger - Ativan PRN, continue home clonazepam at night - Discussed at length that benzodiazepines are not good solution to this problem. Talked about lifestyle modifications (relaxation techniques), alternate pharmacologic options (SSRIs, paroxetine), psychotherapy. Advised that these should be established with PCP 3. Palpitations: Reviewed telemetry, quiet. Related to above. 4. Leukocytosis: Significantly elevated but improving from last admission. No s/ s infection. 5. Chronic hypoxemic respiratory failure: On 2L at baseline. 6. Chronic diastolic CHF: Compensated. Also has MR and pulm HTN. Home meds 7. PV: Continue hydroxyurea. 8. Aortic stenosis: Mild. VTE ppx: SCDs Code: DNR Dispo: Switch to inpatient, unsafe for dc. Hopefully dc tomorrow if symptoms and BP controlled Subjective: Very worried about having another panic attack. Also not able to get her home oxygen here. Objective: Vital Signs Temp Pulse Resp BP Pulse Ox 36.8 C 65 16 159/68 H 95 01/17/19 12:00 01/17/19 12:00 01/17/19 12:00 01/17/19 12:00 01/17/19 12:00 01/16/19 01/17/19 01/18/19 05:59 05:59 05:59 Intake Total 900 Output Total 500 Balance 900 -500 - Physical Exam Constitutional: no apparent distress, appears nourished, not in pain Eyes: PERRL, anicteric sclera, EOMI Ears, Nose, Mouth, Throat: moist mucous membranes, hearing normal, ears appear normal, no oral mucosal ulcers Cardiovascular: regular rate and rhythym, no murmur, rub, or gallop Respiratory: no respiratory distress, no rales or rhonchi, clear to auscultation Gastrointestinal: normoactive bowel sounds, soft, non-tender abdomen, no palpable masses Genitourinary: no bladder fullness, no bladder tenderness, no renal bruits Skin: no rashes or abrasions, no fluctuance, no induration Musculoskeletal: full muscle strength, no muscle tenderness, normal joint ROM Neurologic: AAOx3, sensation intact bilaterally Psychiatric: interacting appropriately ICD10 Worksheet Patient Problems: Problems Problem Status Onset Hypertensive urgency Acute Anxiety disorder Active Pseudogout Active right lumbar pain Active Chronic Disease Mgmt/Transitional Care Acute Dizziness Acute Hypoxia Acute Pneumonia Acute
[2019-01-17] MEDS: GABAPENTIN 100 MG CAP PO SCH (20:46)
[2019-01-17] MEDS ORDERED: clonazePAM 1 MG TAB PO SCH (21:00)
[2019-01-18] MEDS ORDERED: hydrALAZINE 10 MG TAB PO PRN (00:36)
[2019-01-18] MEDS ORDERED: LISINOPRIL 20 MG TAB PO SCH (06:00)
[2019-01-18] MEDS ORDERED: amLODIPine BESYLATE 5 MG TAB PO SCH (08:18)
--- NOTE | 2019-01-18 08:44 | PDMN ---
Medical Necessity Medical necessity: Change to IP, as of 01/17/19, per & [facility] General Discharge Criteria; los >2 mn for ongoing management of anxiety w/panic attacks & elevated BP; pt unsafe for dc; requiring further monitoring & med management; comorbid advanced age, CHF, chronic respiratory failure, polycythemia vera
[2019-01-18] MEDS ORDERED: ASPIRIN EC 81 MG TAB PO SCH (09:00)
[2019-01-18] MEDS ORDERED: FUROSEMIDE 20 MG TAB PO SCH (09:00)
[2019-01-18] MEDS ORDERED: HYDROXYUREA 500 MG CAP PO SCH (09:00)
--- NOTE | 2019-01-18 09:24 | PDDCSUM ---
Discharge Summary Discharge Summary: Date of Admission: 01/17/2019 Date of Discharge: 01/18/2019 Studies: CXR Discharge Diagnoses: 1. Panic attack 2. Acute on chronic HTN 3. Palpitations 4. Chronic respiratory failure at baseline 2L/min 5. Chronic leukocytosis 6. Chronic diastolic CHF 7. Polycythemia vera on hydroxyurea Brief Hospital Course: 88yo F with anxiety/panic attacks, chronic diastolic CHF, chronic respiratory failure, PV here with panic attack and significantly elevated BP. This is her 3rd admission in recent weeks for similar symptoms. She developed severe anxiety at home and called a neighbor reporting she was having a panic attack. EMS was called and when they arrived her BP was in the 200s. She reports that her BP gets elevated when she gets anxious. She was unable to identify a trigger for her panic attack. She received 1 dose of PO ativan and her symptoms and BP improved. Her BP was still mildly elevated and her amlodipine was increased. She was given a very small supply of ativan and advised to follow up with her PCP to address her panic attacks. Medications: Please refer to EMR for complete list. I wrote a prescription for lorazepam 0.5mg PRN #3 with 0 refills. I also increased her amlodipine from 2.5mg to 10mg daily and sent a prescription for this to her pharmacy. Follow Up Plan: 1. She has an appointment with her PCP this week. I recommended ongoing treatment strategies for her panic disorder/anxiety. Physical Exam: Vitals and telemetry reviewed, no arrhythmias. Alert and oriented , RRR, lungs ctab, abdomen soft and nt, no leg edema or JVD, no rashes.
[2019-01-18 09:25] VITALS: BP 138/76
[2019-01-18] MEDS: FUROSEMIDE 20 MG TAB PO SCH (09:27)
[2019-01-18] MEDS: GABAPENTIN 100 MG CAP PO SCH (09:27)
[2019-01-18] MEDS: ENOXAPARIN 40 MG/0.4 ML SYR SC SCH (09:28)
--- NOTE | 2019-01-18 09:47 | ASMTLACE ---
CHRISTELLEE Length of stay for Answers: 2 days current admission Acuity / Level of Answers: Yes Care: Did the patient have an inpatient admission? Comorbidities - select Answers: Congestive heart failure all that apply Other Notes: HTN # of Emergency department Answers: 5-8 visits in the last 6 months Social determinants Answers: Mental health diagnosis (anxiety, depression, pers onality disorders, etc.) Score: 15 Date Signed: 01/18/2019 09:46 AM Electronically Signed By:KENNA Tan
--- NOTE | 2019-01-18 09:51 | ASMTDCNOTE ---
Case Management Discharge Discharge Order Complete? Answers: Yes Patient to Obtain Answers: Independently Medications Transportation Arranged Answers: Family/Friends EMTALA Complete Answers: No Case Management Transport Answers: No Form Complete Faxed Final Orders Answers: Yes Agency/Facility Transfer Answers: Yes Report Printed & Faxed to Receiving Agency Family Notified Answers: No Discharge Comments Notes: Pts case discussed w/ Dr. Zavala and SELENE Asencio. Pt is being d/c'd today. Pts friend is picking her up. Dr. Zavala will put in resumption of care orders w/ [facility]; PT and RN. CM spoke to the manager social media at pts primary care doctor's office and provided updates. No other needs at this time. CM available for changes. Plan: BELINDA GOLDSMITH, RN Date Signed: 01/18/2019 09:50 AM Electronically Signed By:KENNA Tan
--- NOTE | 2019-01-18 10:01 | PDIAF ---
- Diagnosis Code Status: Do Not Resuscitate - Medication Management Discharge Medications: electronically signed and located in the Home Medication List. PICC Care - Routine: N/A - Orders Services needed: Home Care, Registered Nurse, Physical Therapy Home Care Face to Face: I certify that this patient was under my care and that I had the required [id number] encounter meeting the encounter requirements on the discharge day. My findings support the fact that the patient is homebound as defined in Home Care Face to Face Continued: CMS Chapter 7 Medicare Benefits Manual 30.1.1 , The condition of the patient is such that there exists a normal inability to leave home and consequently, leaving home would require a considerable and taxing effort. Isolation Type: None Additional Instructions: I sent a prescription for a few tablets of lorazepam to your pharmacy. Only take these NEEDED for a panic attack. Please follow up with Dr Alex as we talked about. I also sent a new prescription for an increased dose of amlodipine (your blood pressure medication) to your pharmacy. Take 10mg daily now. - Follow Up Care Current Providers and Referrals: Leslie Alex MD [Primary Care Provider] - 01/24/19 5:00 pm
== END 2019-01-18 10:25 | disposition home health service (06) | DRG 880 ==
LOC: EDUNIT# → F2W 01-17 02:40 → OBSVTOIN 01-17 16:07
PROVIDERS: ADMIT Family Medicine; ATTEND Family Medicine
DX: F41.0 Panic disorder [episodic paroxysmal anxiety] (principal); I11.0 Hypertensive heart disease with heart failure; I50.32 Chronic diastolic (congestive) heart failure; J96.11 Chronic respiratory failure with hypoxia; D45 Polycythemia vera; I08.0 Rheumatic disorders of both mitral and aortic valves; Z99.81 Dependence on supplemental oxygen; Z98.1 Arthrodesis status; Z87.01 Personal history of pneumonia (recurrent); Z96.643 Presence of artificial hip joint, bilateral; Z87.891 Personal history of nicotine dependence; Z66 Do not resuscitate
CPT/HCPCS: 84484-ER; 97165-GO; J1650

== ENCOUNTER → 2019-01-20 | Outpatient (CLI) | payer OTHER | LOC: FIMAGING 11:30 | PROVIDERS: ATTEND Internal Medicine | DX: I65.23 Occlusion and stenosis of bilateral carotid arteries (principal) ==